=== PATIENT | male | born 1945 | race African-American/Black ===

== ENCOUNTER 2017-03-24 12:32 | Emergency (ER) | payer MEDICARE, MEDICAID ==
[2017-03-24] MEDS ORDERED: Acetaminophen/Codeine 30-300mg Tablet ONE (13:24)
--- NOTE | 2017-03-24 13:49 | RAD ---
2 VIEWS CHEST: Date: 03/24/17 PROVIDED CLINICAL HISTORY: Right rib pain status post injury. COMPARISON: Comparison made with the examination performed on 04/10/16. Cardiac and mediastinal silhouette is within normal limits. Lungs appear clear. No pleural fluid or p neumothorax apparent. IMPRESSION: No evidence for an acute cardiopulmonary process. POS: [facility]
== END 2017-03-24 13:58 | disposition home or self-care (01) ==
LOC: ERS 12:32
DX: S20.211A Contusion of right front wall of thorax, initial encounter (principal); I10 Essential (primary) hypertension; F17.210 Nicotine dependence, cigarettes, uncomplicated; W01.198A Fall on same level from slipping, tripping and stumbling with subsequent striking against other object, initial encounter
CPT/HCPCS: 71046

== ENCOUNTER 2017-04-06 16:19 | Inpatient (IN) | payer MEDICARE, MEDICAID ==
[~2017-04-06 16:19] MED LIST: Dexamethasone 20 MG/5 ML VIAL ONE; Lidocaine 1% PF 5 ML VIAL ONE; Ondansetron HCl/PF 4 MG/2 ML Vial ONE; PHENYLEPHRINE-NS 100 MCG/ML 10 ML SYRINGE ONE; PROPOFOL 200 MG/20 ML VIAL ONE; Succinylcholine Chloride 20 MG/ML 10 ml SYRINGE FS ONE; ePHEDrine/0.9% NaCl/PF SYRINGE 50 mg/10 ml ONE
[2017-04-06] MEDS ORDERED: HYDROcodone/Acetaminophen 10/325 mg Tablet ONE (17:55)
--- NOTE | 2017-04-06 18:36 | RAD ---
LEFT INDEX DIGIT RADIOGRAPHS THREE VIEWS 04/06/17 PROVIDED CLINICAL HISTORY: Left finger pain status post injury. FINDINGS: There is a nondisplaced intra-articular fracture involving the distal aspects of the index digit prox imal phalanx. There is surrounding soft tissue swelling. No additional fracture is evident. Alignment appears anatomic. Joint spaces appear preserved. IMPRESSION: Nondisplaced intra-articular fracture of the index digit proximal phalanx at the PIP joint. POS: [facility]
[2017-04-06] MEDS ORDERED: Neomycin-Polymyxin 1 ML AMP ONE (18:44)
[2017-04-06] MEDS ORDERED: Morphine 4 MG/ML Carpuject ONE (19:20)
[2017-04-06] MEDS ORDERED: hydrALAZINE 20 MG/ML VIAL ONE (19:20)
[2017-04-06] MEDS ORDERED: Ondansetron HCl/PF 4 MG/2 ML Vial ONE (19:20)
[2017-04-06] MEDS ORDERED: Labetalol HCl 100 MG/20 ML VIAL ONE (19:54)
[2017-04-06] MEDS ORDERED: Ondansetron HCl/PF 4 MG/2 ML Vial IVP PRN ×2 (20:13→22:52)
[2017-04-06] MEDS ORDERED: CEFAZOLIN/Water 2 GM/20 ML SYRINGE ONE (20:15)
[2017-04-06] MEDS ORDERED: traMADol HCl 50 MG TAB PO PRN ×2 (20:36)
[2017-04-06] MEDS ORDERED: RENALLY ADJUST ANTIBIOTICS FS PRN (20:45)
[2017-04-06] MEDS ORDERED: Bupivacaine PF 0.5% 30 ML VIAL ONE (21:26)
[2017-04-06] MEDS ORDERED: Fentanyl 100 MCG/2 ML VIAL ONE ×3 (21:44→23:07)
[2017-04-06] MEDS ORDERED: CEFAZOLIN/Water 2 GM/20 ML SYRINGE SLOW IVP SCH (22:00)
[2017-04-06] MEDS ORDERED: Bacitracin Zinc Ointment 30 gm TUBE ONE (22:23)
[2017-04-07] MEDS ORDERED: Labetalol HCl 100 MG/20 ML VIAL SLOW IVP PRN (00:13)
[2017-04-07] MEDS ORDERED: hydrALAZINE 20 MG/ML VIAL SLOW IVP PRN (00:13)
[2017-04-07] MEDS ORDERED: Amlodipine 10 MG TAB PO SCH ×2 (00:15→09:00)
[2017-04-07] MEDS ORDERED: Lisinopril 20 MG TAB PO SCH (00:15)
[2017-04-07] MEDS ORDERED: Hydrochlorothiazide 25 MG TAB PO SCH (00:15)
[2017-04-07] MEDS: Lisinopril/Hydrochlorothiazide 20 mg/12.5 mg Tablet PO SCH ×2 (00:30→08:21)
[2017-04-07 01:55] VITALS: BMI 24.4
[2017-04-07] MEDS ORDERED: CEFAZOLIN/Water 2 GM/20 ML SYRINGE SLOW IVP SCH (04:00)
[2017-04-07 05:43] LABS: #Monocytes 0.2 thou/uL (0.11-0.59); #Neutrophils 5.1 thou/uL (1.40-6.50); %Basophils 0.1 % (0.0-1.0); %Eosinophils 0.3 % (0.0-10.0); %Lymphocytes 15.5 % (21.0-51.0); %Monocytes 3.6 % (0.0-10.0); %Neutrophils 80.5 % (42.0-75.0); Mean Corpuscular HGB CONC 32.4 g/dL (32.0-36.0); Mean Corpuscular Hemoglobin 29.2 pg (27.0-31.0); Mean Platelet Volume 9.2 fL (7.4-10.4); Platelet Count 168 thou/uL (130-400); RBC Distribution Width 13.8 % (11.5-14.5); Red Blood Cell (RBC) Count 4.47 mill/uL (4.70-6.10); White Blood Cell (WBC) Count 6.3 thou/uL (4.8-10.8)
[2017-04-07 05:59] LABS: Anion Gap 12 mmol/L (10-20); BUN (Urea Nitrogen) 15 mg/dL (8.4-25.7); Calc. Creatinine Clearance 63 mL/min (70-130); Calcium 9.7 mg/dL (7.8-10.44); Carbon Dioxide 22 mmol/L (23-31); Chloride 105 mmol/L (98-107); Estimated GFR-MDRD 67; Glucose 132 mg/dL (83-110); Magnesium 2.3 mg/dL (1.6-2.6); Potassium 4.2 mmol/L (3.5-5.1); Sodium 135 mmol/L (136-145)
--- NOTE | 2017-04-07 06:35 | CON ---
PRIMARY CARE PHYSICIAN: Dr. Reyna East. DATE OF CONSULTATION: 04/06/2017 TIME OF SERVICE: 2350. REQUESTING PHYSICIAN: Dr. Alberto Yeboah. REASON FOR CONSULT: Medical management of hypertension, post-finger laceration repair. HISTORY OF PRESENT ILLNESS: Mr. Herbert is a very pleasant 71-year-old -Citizen Of [place] male with history of hypertension, medical noncompliance, ongoing tobacco abuse, and osteoarthritis. The alfred ent was in normal state of health today. He was working on a bandsaw and accidentally sliced into hi s left index finger. He came to the emergency department for evaluation and was set up for surgery f or repair. The patient was noted to have a blood pressure in the 220s/110s on arrival. He was given hydralazine and prepped for surgery today and taken for operative repair. He underwent general endotracheal ane sthesia without any difficulties. Postop, I am evaluating the patient. We were asked to see him korina or to going to surgery. Blood pressure has been in the 170s/50s since coming out of surgery. No fevers or chills. No chest pain or shortness of breath. No nausea or vomiting. PAST MEDICAL HISTORY: Hypertension. PAST SURGICAL HISTORY: Includes, 1. Bilateral rotator cuff repairs. 2. Back surgery. 3. Left hand surgery prior. HOME MEDICATIONS: 1. Tramadol 50 mg p.o. t.i.d. p.r.n. 2. Amlodipine 10 mg p.o. daily. 3. Lisinopril/hydrochlorothiazide 20/12.5 p.o. b.i.d. 4. Dequincy 7.5/325 one tablet as needed. 5. Gabapentin 300 mg p.o. t.i.d. 6. Flexeril 5 mg p.o. t.i.d. p.r.n. 7. Albuterol MDI p.r.n. ALLERGIES: 1. ASPIRIN causes rash. 2. IBUPROFEN causes rash. FAMILY HISTORY: Negative for clotting or bleeding disorder, immune dysfunction. SOCIAL HISTORY: Continues to smoke half pack of cigarettes per day. He smokes for 60 years. Denies any IV drug use and rare alcohol use. We discussed advanced directives. The patient does wish to be a FULL CODE. He was unable to name a surrogate. REVIEW OF SYSTEMS: A 10-point review of systems was performed, negative for all other systems except as stated as per HPI. PHYSICAL EXAMINATION: VITAL SIGNS: Temperature 98.2, pulse 60, blood pressure 175/95, respiratory rate 18, satting 96% on room air. He has remained in the 170s/90s since arrival to the floor. GENERAL: He is awake. He is alert. He is oriented x3. He is a tall, thin, -[place]izen [place] male a ppears to be in no acute distress. HEENT: Normocephalic, atraumatic. Pupils are equal, round, react to light bilaterally, mucous membr anes moist. No visible lesions or thrush. NECK: Supple. There is no lymphadenopathy, JVD, or thyromegaly. Normal carotid upstroke without br uit. LUNGS: Clear. There is no prolonged expiratory phase. No wheezes, no rales, or rhonchi. Good air movement. Symmetric chest excursion. CARDIOVASCULAR: Normal S1 and S2. No S3, S4. Pulses are bounding. No audible murmurs. ABDOMEN: Soft. Nontender, nondistended. No mass or organomegaly. EXTREMITIES: No cyanosis or clubbing. No edema. Left hand was in a postop wrap, was not examined. SKIN: Warm and well perfused, otherwise no other rash or lesions. NEUROLOGIC: Cranial nerves II-XII are grossly intact. He has normal speech pattern, 5/5 strength in all 4 extremities. No focal deficits. MUSCULOSKELETAL: Other than his left hand, large joints appear arthritic but uninflamed. He has no palpable effusions. LABORATORY DATA: None. RADIOGRAPHIC STUDIES: Finger x-ray done in the emergency department showed nondisplaced intra-articu lar fracture of the index digit proximal phalanx of the PIP joint. ASSESSMENT AND PLAN: 1. Essential hypertension. Patient was recently started on lisinopril/hydrochlorothiazide and amlod ipine by Dr. Reyna East within the last month. We will go and give doses now and plan to restar t and give them more in the morning. We will give hydralazine q.3 hours p.r.n. elevated systolic pre ssure and labetalol with hydralazine is not effective. Watch pressure very closely. Certainly has s ome wiggle room on the lisinopril and hydrochlorothiazide to go up. He is already on amlodipine 10 m g a day. Could change to nifedipine if we need better blood pressure control. We will check morning labs including CBC, CMP, and magnesium. Plan has been to up his lisinopril depending on what his cr eatinine is. 2. Finger laceration, status post repair by Dr. Yeboah. Postop care and pain management per Dr. Tl whitman. 3. Osteoarthritis as above. 4. Ongoing tobacco abuse, patient does use albuterol MDIs as needed. We will have that available. He has no signs of reactive airway disease or chronic obstructive pulmonary disease exacerbation at t his point.
[2017-04-07] MEDS ORDERED: Acetaminophen/Codeine 30-300mg Tablet PO PRN ×2 (07:54)
[2017-04-07] MEDS ORDERED: TETANUS AND DIPHTHERIA TOX/PF 0.5 ML DISP.SYRIN IM SCH (09:00)
[2017-04-07] MEDS ORDERED: cloNIDine 0.1 MG TAB PO PRN (09:19)
[2017-04-07 09:36] VITALS: BP 166/96; TEMP 97.7
--- NOTE | 2017-04-07 16:17 | OP ---
DATE OF SURGERY: 04/06/2017 PREOPERATIVE DIAGNOSIS: Left index finger laceration with proximal phalanx head fracture and extenso r tendon laceration. POSTOPERATIVE DIAGNOSIS: Left index finger laceration with proximal phalanx head fracture and extens or tendon laceration. SURGICAL PROCEDURES: 1. Irrigation and debridement of left index finger laceration including skin, subcutaneous tissue, a nd tendon. 2. Repair of extensor tendon at the level of the proximal interphalangeal joint. 3. Exploration of a stable fracture of proximal phalanx. ANESTHESIA: General. TOURNIQUET TIME: Approximately 26 minutes at 250 mmHg. SURGEON: Alberto Yeboah M.D. IMPLANTS: None. COMPLICATIONS: None. DRAINS: None. SPECIMEN: None. OUTCOME: Satisfactory. INDICATIONS: Mr. Herbert is a pleasant 71-year-old gentleman status post table saw accident in [facility] he cut the dorsal surface of his index finger with a table saw. Workup included plain x-rays in the emergency room that showed what appears to be a split at the head of the proximal phalanx of the index finger. After discussion with patient including risks and benefits, we decided to proceed with irrigation, debridement, and possible repair of both proximal phalanx and extensor tendon. PROCEDURE IN DETAIL: A timeout was performed and then patient was induced with general anesthesia an d positioned supine on the OR table. The limb was then exsanguinated with Esmarch bandage, tournique t inflated to 250 mmHg. The traumatic wound was extended both proximally and distally and then the s kin flaps developed and reflected revealing the underlying long oblique laceration of the extensor te ndon with still some continuity of the extensor kline. Exploiting the interval through the lacerated tendon, the proximal phalanx fracture was identified. This was not a through and through fracture, b ut rather a cut with the saw blade and probing of the head of the proximal phalanx that showed that t his was stable with absolutely no movement at the partial fracture line. As such, the wound was then thoroughly irrigated with normal saline with bulb syringe, removing all foreign debris. This incisi on and drainage for irrigation and debridement was performed with a scalpel, removing nonviable tendo n material as well as sharply excising some of the foreign material that was encountered. Next, atte ntion was placed at repairing the extensor tendon using 4-0 Prolene in a running repair of this long oblique laceration of the extensor tendon was performed. This got excellent edge on edge apposition of the laceration and the finger could be brought up to approximately 70 degrees of flexion at the pr oximal interphalangeal joint without excessive tension on the repair. The wound again irrigated and then finally closed with 3-0 nylon in simple fashion for the skin. A Xeroform gauze, Webril, and pos terior fiberglass splint was applied to the hand and then tourniquet was let down, total time of 26 m inutes. The patient was then transferred to recovery room in stable condition. There were no compli cations. He tolerated the procedure well.
--- NOTE | 2017-04-08 13:34 | DIS ---
DATE OF ADMISSION: 04/06/2017 DATE OF DISCHARGE: 04/07/2017 PREOPERATIVE DIAGNOSES: Left index finger laceration with possible phalanx head fracture and extenso r tendon laceration. POSTOPERATIVE DIAGNOSES: Left index finger laceration with possible phalanx head fracture and exten sor tendon laceration. PROCEDURES: 1. Irrigation and debridement left index finger laceration including skin, subcutaneous tissue and t endon. 2. Repair of extensor tendon at the level of the proximal interphalangeal joint. 3. Exploration of a stable fracture of the proximal phalanx. HOSPITAL COURSE: Hospital stay was unremarkable. The patient was discharged next day. He had no ho spital complications. DISCHARGE CONDITION: Good/stable. DISPOSITION: Home. DISCHARGE FOLLOWUP: Followup would be in 7-10 days, sooner if there are problems or concerns. DISCHARGE MEDICATIONS: Given with usage instructions. Heraclio Charles PA-C for Dr. Alberto Yeboah.
--- NOTE | 2017-04-16 14:16 | EKG ---
Test Reason : Blood Pressure : / mmHG Vent. Rate : 056 BPM Atrial Rate : 056 BPM P-R Int : 168 ms QRS Dur : 072 ms QT Int : 434 ms P-R-T Axes : 076 041 082 degrees QTc Int : 418 ms Sinus bradycardia Moderate voltage criteria for LVH, may be normal variant Borderline ECG Confirmed by NICO BELL, SOPHIE ([id number]), movie editor MALATHI BYRD ([id number]) on 04/16/2017 2:15:56 PM Referred By: Confirmed By:SOPHIE WALSH MD
== END 2017-04-07 09:51 | disposition home or self-care (01) | DRG 513 ==
LOC: ERS 16:19 → SURG B 20:00 → SDC 20:38 → SURG B 23:39
PROVIDERS: ADMIT Orthopaedic Surgery; ATTEND Orthopaedic Surgery
PROC: 0LQ80ZZ Repair Left Hand Tendon, Open Approach (ICD-10-PCS; principal; 2017-04-06)
PROC: 0LB80ZZ Excision of Left Hand Tendon, Open Approach (ICD-10-PCS; 2017-04-06)
DX: S62.641A Nondisplaced fracture of proximal phalanx of left index finger, initial encounter for closed fracture (principal); S66.321A Laceration of extensor muscle, fascia and tendon of left index finger at wrist and hand level, initial encounter; F17.210 Nicotine dependence, cigarettes, uncomplicated; S61.211A Laceration without foreign body of left index finger without damage to nail, initial encounter; I10 Essential (primary) hypertension; W29.8XXA Contact with other powered hand tools and household machinery, initial encounter; M19.90 Unspecified osteoarthritis, unspecified site
CPT/HCPCS: 36415; 80048; 83735; 85025; 93005; 96374; 96375; 99406; J0360; J1100; J2001; J2270; J2405; J2704; J3010; S0020

== ENCOUNTER 2017-11-19 07:57 | Emergency (ER) | payer MEDICARE, MEDICAID ==
[2017-11-19] MEDS ORDERED: Cyclobenzaprine 10 MG TAB ONE (08:54)
[2017-11-19] MEDS ORDERED: Acetaminophen 325 MG TAB ONE (08:54)
--- NOTE | 2017-11-19 11:13 | RAD ---
CHEST PA AND LATERAL: HISTORY: A 72-year-old male with a history of right posterior chest wall pain. FINDINGS: The lungs are borderline hyperinflated. Heart size is normal. The lungs are clear. No pneumonia, e leo, or pleural effusion. IMPRESSION: Borderline hyperinflation. No acute intrathoracic disease. Stable from prior study. POS: [facility]
== END 2017-11-19 10:31 | disposition home or self-care (01) ==
LOC: ERS 07:57
DX: S46.911A Strain of unspecified muscle, fascia and tendon at shoulder and upper arm level, right arm, initial encounter (principal); I10 Essential (primary) hypertension; F17.210 Nicotine dependence, cigarettes, uncomplicated; X50.1XXA Overexertion from prolonged static or awkward postures, initial encounter
CPT/HCPCS: 71046

== ENCOUNTER 2018-03-14 00:30 | Observation (INO) | payer MEDICARE, MEDICAID ==
[2018-03-14 01:18] LABS: #Basophils 0.1 thou/uL (0.0-0.2); #Eosinphils 0.5 thou/uL (0.0-0.7); #Lymphocytes 1.9 thou/uL (1.20-3.40); #Monocytes 0.7 thou/uL (0.11-0.59); #Neutrophils 4.5 thou/uL (1.40-6.50); %Basophils 0.9 % (0.0-1.0); %Eosinophils 6.6 % (0.0-10.0); %Lymphocytes 24.8 % (21.0-51.0); %Monocytes 9.3 % (0.0-10.0); %Neutrophils 58.4 % (42.0-75.0); Hemoglobin 12.6 g/dL (14.0-18.0); Mean Corpuscular HGB CONC 32.7 g/dL (32.0-36.0); Mean Corpuscular Hemoglobin 28.5 pg (27.0-31.0); Mean Platelet Volume 8.2 fL (7.4-10.4); Platelet Count 168 thou/uL (130-400); RBC Distribution Width 13.7 % (11.5-14.5); Red Blood Cell (RBC) Count 4.42 mill/uL (4.70-6.10); White Blood Cell (WBC) Count 7.7 thou/uL (4.8-10.8)
[2018-03-14] MEDS ORDERED: methylPREDNISolone Sod Succ/PF 125 MG/2 ML VIAL ONE (01:19)
[2018-03-14 01:42] LABS: ALT (SGPT) 9 U/L (8-55); AST (SGOT) 16 U/L (5-34); Albumin 3.9 g/dL (3.4-4.8); Alkaline Phosphatase 107 U/L (40-150); Anion Gap 11 mmol/L (10-20); BUN (Urea Nitrogen) 12 mg/dL (8.4-25.7); Bilirubin, Total 0.5 mg/dL (0.2-1.2); Calc. Creatinine Clearance 0 mL/min (70-130); Calcium 9.4 mg/dL (7.8-10.44); Carbon Dioxide 23 mmol/L (23-31); Chloride 103 mmol/L (98-107); Estimated GFR-MDRD 59; Globulin 3.2 g/dL (2.4-3.5); Glucose 94 mg/dL (83-110); Potassium 4.2 mmol/L (3.5-5.1); Protein, Total 7.1 g/dL (5.8-8.1); Sodium 133 mmol/L (136-145)
[2018-03-14 02:05] LABS: CKMB 3.2 ng/mL (0-6.6)
[2018-03-14] MEDS ORDERED: Nitroglycerin 2% Ointment 1 INCH/1 GM Packet ONE (03:30)
[2018-03-14 03:58] LABS: Troponin I 0.018 ng/mL (< 0.028)
[2018-03-14] MEDS ORDERED: Ondansetron ODT 4 MG TAB SL PRN (04:14)
[2018-03-14] MEDS ORDERED: Ondansetron PF 4 MG/2 ML Vial IVP PRN (04:14)
[2018-03-14] MEDS ORDERED: Sodium Chloride 0.9% 1,000 ML IV SCH (04:14)
[2018-03-14] MEDS ORDERED: Acetaminophen 325 MG TAB PO PRN (04:14)
[2018-03-14 05:30] VITALS: BMI 23.5
[2018-03-14] MEDS ORDERED: Guaifenesin DM 100-10/5 ML UDCUP PO PRN (07:51)
--- NOTE | 2018-03-14 08:27 | RAD ---
PA AND LATERAL CHEST XRAY: DATE: 03/14/2018. HISTORY: Cough and fever. Shortness of breath. COMPARISON: 11/19/2017. FINDINGS: The lungs remain hyperexpanded but are clear. The cardiac silhouette and pulmonary vasculature are w ithin normal limits. There has been no interval change compared to the prior exam. IMPRESSION: Stable hyperexpansion of the lungs without evidence of an acute cardiopulmonary process. The chest i s stable from prior exam. POS: [facility]
[2018-03-14] MEDS ORDERED: PROVENTIL INHALER 6.7 G (200 INHALATIONS) INH SCH (09:00)
[2018-03-14] MEDS ORDERED: Amlodipine 10 MG TAB PO SCH (09:00)
[2018-03-14] MEDS ORDERED: Famotidine 20 MG TAB PO SCH (09:00)
[2018-03-14] MEDS ORDERED: Enoxaparin Sodium 40 MG/0.4 ML SYRINGE SC SCH (09:00)
[2018-03-14] MEDS ORDERED: Prevnar 13-Val Conj/PF 0.5 ML SYRINGE IM ONE (09:00)
[2018-03-14] MEDS ORDERED: predniSONE 20 MG TAB PO SCH (10:04)
[2018-03-14 11:56] VITALS: TEMP 98.5
[2018-03-14 12:51] VITALS: BP 166/84
--- NOTE | 2018-03-14 15:37 | SS ---
DATE OF ADMISSION: 03/14/2018 DATE OF DISCHARGE: 03/14/2018 CHIEF COMPLAINT: Shortness of breath with a productive cough x4 days. CONSULTING PHYSICIANS: None. HISTORY OF PRESENT ILLNESS: This is a very pleasant 72-year-old man, who has a background history of hypertension and COPD. He is a long-time smoker since age 15, who presents with a cough that began four days ago, productive for green to white sputum. The patient states he began to experience coughing fits, which would then cause shortness of breath. When he has not been coughing, he denies having any shortness of breath neither at rest nor with exertion. The patient denies ever experiencing any chest pain. He denies having any hemoptysis. He states his took his temperature and he had mild fever, but does not recall how high his temperature was. Due to the persisting coughing fits, the patient became very short of breath and opted to come into the ED early hours this morning. While in the ED, he was noted to be wheezing. Per ED notes, he had been complaining of chest pain. However, again the patient denies ever experiencing any chest pain since four days ago. He does admit to wheezing and usually uses an albuterol inhaler at home; however, this did not provide any relief with his symptoms. In the ED, he did undergo a chest x-ray showing hyperexpansion of the lungs, otherwise no acute cardiopulmonary process. LABORATORY DATA: Laboratory studies were done showing white blood count of 7.7, hemoglobin of 12.6, hematocrit 38.4. Sodium was 133 and is chronically low. Potassium was 4.2. BUN 12. Creatinine 1.43. EGFR 59. Calcium 9.4. LFTs unremarkable. CK-MB was 3.2. BNP was 119.9. He underwent serial troponins with the initial being raised at 0.035 followed by two subsequent negative TnI's. An ECG was done in the ED notable for abnormal T-waves, otherwise no ST changes. He was admitted for further management and investigations. When seen earlier this morning, the patient had notable inspiratory and expiratory wheezes bilaterally throughout all lung anand. He was given DuoNeb x2 and 40 mg of prednisone with significant improvement. His symptoms have fully resolved. Please note, when seen this morning. despite wheezing on exam, the patient was completely asymptomatic. He denied having any shortness of breath. Able to ambulate without difficulties. Continued to deny any chest pain. His cough had settled with guaifenesin. The patient was very eager to go home. Following further discussion with Dr. Yin, it was decided he would be suitable for discharge, however with plans to follow up with his primary care physician for an echo and stress test, which he has never had done in the past. The patient was discharged on short course steroids and doxycycline for infective exacerbation of COPD. He states he is running low on his ProAir, therefore this was refilled. At the time of discharge, the patient denies having any fevers, chills, or sweats. No headaches or dizziness. No nausea or vomiting. He has tolerated a regular diet during his stay. No abdominal pain or cramping. He has been moving his bowels. No urinary symptoms. REVIEW OF SYSTEMS: All other review of systems are negative. PHYSICAL EXAMINATION: VITAL SIGNS: Temperature 98.5, pulse 82, respirations 16, and blood pressure 166/84. HEENT: Normocephalic and atraumatic. Pupils are equal, round, reactive to light. Sclerae are without icterus. Oropharynx is clear. NECK: Supple without lymphadenopathy. LUNGS: Clear to auscultation bilaterally without any wheezes, rales, or rhonchi. CARDIAC: Regular rate and rhythm without audible murmurs, rubs, or gallops. ABDOMEN: Soft, nontender, nondistended. Normoactive bowel sounds present. EXTREMITIES: No clubbing, cyanosis, or edema. NEUROLOGIC: Alert and oriented x3. SKIN: Without rash or jaundice. PAST MEDICAL HISTORY: 1. Hypertension. 2. Herniated disk. PAST SURGICAL HISTORY: 1. Bilateral rotator cuff surgery. 2. Left hand surgery. 3. Back surgery. SOCIAL HISTORY: The patient admits to smoking a half a pack per day. He has been smoking since age 15. He also drinks occasionally. He denies any illicit drug use. FAMILY HISTORY: Both of his parents had hypertension. ALLERGIES: 1. ASPIRIN CAUSES RASH. 2. IBUPROFEN CAUSES NAUSEA. CURRENT MEDICATIONS: 1. Prescription refill for ProAir. 2. Prescription given for prednisone 40 mg by mouth daily for four days. 3. Prescription given for doxycycline 500 mg p.o. twice daily for five days. LABORATORY DATA AND IMAGING DATA: As mentioned above in the HPI. CONDITION: Stable at discharge. ACTIVITY: As tolerated. DIET: Heart-healthy diet. FOLLOWUP: The patient was advised to see his primary care physician within the next two days in order to be re-assessed and for discussion of cardiac investigations as an outpatient including an echo and a stress test. DISPOSITION: Discharged home on 03/14/2018. The patient's case was discussed with Dr. Yin, who agrees with the plan as described above. Job ID: [id number]
--- NOTE | 2018-03-24 14:06 | EKG ---
Test Reason : Blood Pressure : / mmHG Vent. Rate : 063 BPM Atrial Rate : 063 BPM P-R Int : 186 ms QRS Dur : 074 ms QT Int : 406 ms P-R-T Axes : 077 034 179 degrees QTc Int : 415 ms Normal sinus rhythm T wave abnormality, consider lateral ischemia No ST elevation Abnormal ECG Confirmed by ACE BELL, JORDAN ([id number]), legal editor MAGNUS BRYAN ([id number]) on 03/24/2018 2:06:11 PM Referred By: Confirmed By:JORDNA BELLO MD
== END 2018-03-14 14:19 | disposition home or self-care (01) ==
LOC: ERS 00:30 → 2SW 02:45
PROVIDERS: ADMIT Internal Medicine; ATTEND Internal Medicine
DX: J44.1 Chronic obstructive pulmonary disease with (acute) exacerbation (principal); I10 Essential (primary) hypertension; F17.210 Nicotine dependence, cigarettes, uncomplicated; Z88.6 Allergy status to analgesic agent; Z88.8 Allergy status to other drugs, medicaments and biological substances; Z98.890 Other specified postprocedural states; Z79.899 Other long term (current) drug therapy
CPT/HCPCS: 71046; 80053; 82553; 83880; 84484 ×2; 85025; 87804 ×2; 90662; 90670; 93005; 94640 ×3; 96361; 96372; 96374; 99285; 99406; G0008; G0009; G0378 ×2; 36415; 90471; J1650; J2930; J7506; J7620

== ENCOUNTER 2019-06-28 09:36 | Outpatient (CLI) | payer MEDICARE, MEDICAID ==
--- NOTE | 2019-06-28 12:24 | CT ---
CT ABDOMEN AND PELVIS WITH IV CONTRAST: Date: 06/28/2019 INDICATION: Right lower quadrant abdominal pain. Comparison made to a noncontrast abdominal and pelvic CT from 02/22/2012. That exam revealed bilatera l renal cysts with no other acute process. FINDINGS: Lung bases appear clear of infiltrate. Images through the liver show numerous small hepatic cysts. These were also present on the prior stud y and appear stable. The spleen is unremarkable. Pancreas unremarkable. Review of the stomach reveals mural thickening in the gastric fundus and cardia extending to the EG j unction. Wall of the body and antrum appears normal thickness. Recommend GI consultation and endoscop y to assess the gastric mucosa at this region. Adrenal glands appear unremarkable. There are numerous bilateral renal cysts. These are too numerous to count. The largest of these cysts seen in the superior pole of both kidneys measures up to 4.0 cm. There is no hydronephrosis. There is no evidence of solid or enhancing renal mass. Small bowel loops show nonspecific distention without dilatation. The appendix is difficult to deline ate due to lack of intra-abdominal fat plane but is probably visualized and appears to be normal. The re is stool throughout the colon. Aorta shows atherosclerotic calcification with normal caliber. No evidence of adenopathy or soft tiss ue mass. Images through the pelvis reveal a contracted bladder which is not well evaluated. There is evidence of mild prostatic hypertrophy. No free fluid identified. Osseous structures unremarkable. Benign-appearing cystic lesion in the subcapital region of the left femur is noted. IMPRESSION: 1. Abnormal mural thickening involving the gastric cardia and fundus. Recommend GI consultation and endoscopy. 2. Numerous hepatic and renal cystic lesions which appear benign. 3. Nonspecific small bowel distention. POS: [facility]
== END 2019-06-28 09:37 | disposition home or self-care (01) ==
LOC: BICCT 09:36
PROVIDERS: ATTEND Family Medicine
DX: R10.31 Right lower quadrant pain (principal); N28.1 Cyst of kidney, acquired; K76.89 Other specified diseases of liver; K63.89 Other specified diseases of intestine; K31.89 Other diseases of stomach and duodenum
CPT/HCPCS: 74177; 82565

== ENCOUNTER 2019-07-19 10:22 | Outpatient (CLI) | payer MEDICARE, MEDICAID ==
--- NOTE | 2019-07-19 12:21 | ULT ---
HEPATIC ULTRASOUND WITH HANLEY SCALE AND COLOR FLOW AND SPECTRAL DOPPLER IMAGING: Date: 07/19/2019 HISTORY: Abdominal pain, right upper quadrant. Chronic hepatitis C. Personal history of colon polyps. CORRELATION: CT abdomen and pelvis of 06/28/2019. FINDINGS: There are cysts in the liver measuring 11.0 mm and 9.0 mm, respectively. The spleen measures 9.6 cm i n length and is normal. No biliary ductal dilatation is seen. The gallbladder and visualized portions of the pancreas are normal. No free fluid is seen in the right upper quadrant. There is normal flow and spectral waveforms in the hepatic, portal, and splenic vasculature. IMPRESSION: 1. Hepatic cysts. 2. No evidence of cholelithiasis. POS: [facility]
== END 2019-07-19 10:23 | disposition home or self-care (01) ==
LOC: BICULT 10:22
PROVIDERS: ATTEND Internal Medicine Gastroenterology
DX: R10.11 Right upper quadrant pain (principal); B18.2 Chronic viral hepatitis C; Z86.010 Personal history of colon polyps; K76.89 Other specified diseases of liver
CPT/HCPCS: 76705

== ENCOUNTER 2019-10-05 10:28 | Emergency (ER) | payer MEDICARE, MEDICAID, OTHER ==
[2019-10-06 14:06] LABS: SARS-CoV-2 MS2 Positive; SARS-CoV-2 N Gene Negative; SARS-CoV-2 S Gene Negative; SARS-CoV-2 by NAA Not Detected (NotDetected); SARS-CoV-2 orf1ab Negative
== END 2019-10-05 10:54 | disposition home or self-care (01) ==
LOC: ERS 10:28
DX: Z20.828 Contact with and (suspected) exposure to other viral communicable diseases (principal); I10 Essential (primary) hypertension; F17.210 Nicotine dependence, cigarettes, uncomplicated
CPT/HCPCS: 99283; U0003; 87635

== ENCOUNTER 2020-01-15 15:02 | Inpatient (IN) | payer MEDICARE, MEDICAID ==
[2020-01-15 16:19] LABS: #Eosinphils 0.3 thou/uL (0.0-0.7); #Lymphocytes 2.7 thou/uL (1.20-3.40); #Monocytes 0.6 thou/uL (0.11-0.59); #Neutrophils 3.1 thou/uL (1.40-6.50); %Basophils 0.7 % (0.0-1.0); %Lymphocytes 40.4 % (21.0-51.0); Hemoglobin 13.8 g/dL (14.0-18.0); Mean Corpuscular HGB CONC 33.5 g/dL (32.0-36.0); Mean Corpuscular Hemoglobin 29.8 pg (27.0-31.0); Mean Platelet Volume 8.2 fL (7.4-10.4); Platelet Count 189 thou/uL (130-400); RBC Distribution Width 13.8 % (11.5-14.5); Red Blood Cell (RBC) Count 4.63 mill/uL (4.70-6.10); White Blood Cell (WBC) Count 6.6 thou/uL (4.8-10.8)
[2020-01-15 16:43] LABS: ALT (SGPT) 11 U/L (8-55); AST (SGOT) 20 U/L (5-34); Albumin 4.1 g/dL (3.4-4.8); Alkaline Phosphatase 111 U/L (40-110); Anion Gap 13 mmol/L (10-20); BUN (Urea Nitrogen) 18 mg/dL (8.4-25.7); Bilirubin, Total 0.4 mg/dL (0.2-1.2); CK (CPK) 262 U/L (30-200); CRP (Inflammatory) Less than 0.50 mg/dL (= or < 0.5); Calc. Creatinine Clearance 0 mL/min (70-130); Calcium 9.6 mg/dL (7.8-10.44); Carbon Dioxide 25 mmol/L (23-31); Chloride 105 mmol/L (98-107); Estimated GFR-MDRD 51; Globulin 3.3 g/dL (2.4-3.5); Glucose 81 mg/dL (83-110); Potassium 4.8 mmol/L (3.5-5.1); Protein, Total 7.4 g/dL (5.8-8.1); Sodium 138 mmol/L (136-145)
--- NOTE | 2020-01-15 17:04 | RAD ---
Exam:3 views left HISTORY: Fourth and fifth toe infection COMPARISON: None FINDINGS: No significant soft tissue swelling or subcutaneous emphysema. Mild bone demineralization. No erosive or destructive changes. Lisfranc alignment is maintained. No fractures. IMPRESSION: No radiographic evidence of ostial myelitis. Additional imaging if clinically warranted.
--- NOTE | 2020-01-15 18:00 | PDOC.FPRHP ---
- History of Present Illness Chief Complaint: pain in left toes History of Present Illness: 74 yo M with history of HTN and COPD complaining of painful and cold left toes for the past month. Patient was seen by Dr. Spivey 1-2 weeks ago and treated with antibiotics for a sore on the bottom of his 4th digit. He explains it has been painful to wear his socks or let the bed sheet cover his foot. Approximately 1 week ago the pain in his 1st, 4th and 5th digit began worsening. The pain is pulsatile and he has noticed his 4th and 5th toes sometimes changing color to black and green. He was evaluated in clinic today and instructed to come to the hospital. He also describes cold and numbness in his left LE from his knee down that has been present for several months, requiring wrapping with a heating pad at times to keep warm as well as chronic left hip pain for the past year. He denies any fever, chills, nausea, or vomiting. - Allergies/Adverse Reactions Allergies Allergy/AdvReac Type Severity Reaction Status Date / Time aspirin Allergy Intermediate Rash Verified 01/15/20 20:35 ibuprofen Allergy Intermediate Rash Verified 01/15/20 20:35 - Home Medications Medication Instructions Recorded Confirmed Type amLODIPine Besylate [Amlodipine 10 mg PO DAILY 04/30/16 01/15/20 History Besylate] Albuterol Sulfate [Proair HFA] 2 puff INH DAILY #1 hfa.aer.[email or web address] 03/14/18 01/15/20 Rx Doxycycline [Vibramycin] 100 mg PO Q12HR 5 Days #10 cap 03/14/18 01/15/20 Rx Prednisone [predniSONE 10 mg 40 mg PO DAILY 4 Days #4 tab.ds.pk 03/14/18 01/15/20 Rx Dosepak] Hydrochlorothiazide 12.5 mg PO BID 01/15/20 01/15/20 History Simvastatin 20 mg PO HS 01/15/20 01/15/20 History - History PMHx: HTN, COPD PSHx: bilateral rotator cuff, left hand, back FHx: Dad - HTN Social: 1/2 PPD for 60 years, social drinking, smokes marijuana 2-3 times a month, denies any other drug use - Review of Systems General: denies: fever/chills Eyes: denies: vision changes ENT: denies: nasal congestion, rhinorrhea Respiratory: denies: cough, congestion, shortness of breath Cardiovascular: denies: chest pain, palpitation, edema Gastrointestinal: denies: nausea, vomiting, diarrhea, constipation, abdominal pain Genitourinary: denies: dysuria Skin: denies: rashes Musculoskeletal: reports: pain, tenderness. denies: swelling Neurological: reports: numbness. denies: weakness - Vital signs BP: 175/116 HR: 81 RR: 19 Tmax: 98.6 Pox: 95% on RA Wt: 75kg - Physical Exam Constitutional: NAD, awake, alert and oriented HEENT: normocephalic and atraumatic, EOMI, grossly normal vision, grossly normal hearing Neck: supple, FROM Heart: RRR, no murmurs/rubs/gallops, no edema -Heart: no L pedal pulses appreciated Lungs: CTAB, no respiratory distress Abdomen: soft, non-tender, bowel sounds present Musculoskeletal: ROM grossly normal, other (cold and tender left 4th and 5th digits, swollen, no erythema or signs of infection) Neurological: no focal deficit, CN II-XII intact Skin: no rash/lesions Psychiatric: normal mood and affect, good judgment and insight, intact recent and remote memory FMR H&P: Results - Labs Result Diagrams: 01/15/20 16:10 01/15/20 16:10 Lab results: WBC 6.6 thou/uL (4.8-10.8) 01/15/20 16:10 Hgb 13.8 g/dL (14.0-18.0) L 01/15/20 16:10 Hct 41.2 % (42.0-52.0) L 01/15/20 16:10 MCV 89.0 fL (78.0-98.0) 01/15/20 16:10 Plt Count 189 thou/uL (130-400) 01/15/20 16:10 Neutrophils % 46.0 % (42.0-75.0) 01/15/20 16:10 Sodium 138 mmol/L (136-145) 01/15/20 16:10 Potassium 4.8 mmol/L (3.5-5.1) 01/15/20 16:10 Chloride 105 mmol/L (98-107) 01/15/20 16:10 Carbon Dioxide 25 mmol/L (23-31) 01/15/20 16:10 BUN 18 mg/dL (8.4-25.7) 01/15/20 16:10 Creatinine 1.61 mg/dL (0.7-1.3) H 01/15/20 16:10 Glucose 81 mg/dL (83-110) L 01/15/20 16:10 Calcium 9.6 mg/dL (7.8-10.44) 01/15/20 16:10 Total Bilirubin 0.4 mg/dL (0.2-1.2) 01/15/20 16:10 AST 20 U/L (5-34) 01/15/20 16:10 ALT 11 U/L (8-55) 01/15/20 16:10 Alkaline Phosphatase 111 U/L (40-110) H 01/15/20 16:10 Creatine Kinase 262 U/L (30-200) H 01/15/20 16:10 C-Reactive Protein Less than 0.50 mg/dL (= or < 0.5) 01/15/20 16:10 Serum Total Protein 7.4 g/dL (5.8-8.1) 01/15/20 16:10 Albumin 4.1 g/dL (3.4-4.8) 01/15/20 16:10 - Radiology Interpretation Other Status: report reviewed by me (Left LR Xray: no signs of osteomyelitis) FMR H&P: A/P - Plan 74 yo M with history of HTN and COPD complaining of painful and cold left toes Ischemic Ulcer vs Peripheral Vascular Disease -cold and painful left LE digits -afebrile, WBC wnl, CRP <0.5 -US arterial and venous dopplers LE pending -[place], morphine prn for pain -Wound care consulted, Rail Gang Supervisor consulted -Consider CTA of LE -Gen Surg consult in AM -no signs of infections, no antibiotics at this time HTN -BP 197/113 in ED -IV labetalol prn -Continue home meds COPD -Well controlled -Continue home meds Tobacco abuse - 1/2 PPD for 60 years - Nicotine patch DVT PPx: SCDs Diet: HH, NPO at midnight Code: FULL PCP: Stephanie Dispo: Complete workup for PVD, discharge pending evaluation by general surgery FMR H&P: Upper Level - Plan Date/Time: 01/15/20 2412 I, Miguel Paz DO, have evaluated this patient and agree with findings/plan as outlined by internal audit manager resident. Pertinent changes/additions are listed here. 74 yo M w pmhx sig for htn and tobacco abuse presents for 1 mo of foot pain It has been worsening for the past week, he reports frequently feeling the extremity as cool, and a throbbing pain. He has never had a wound like this before, does not have known DMII. He denies any erythema, draining purulence, fever, or wounds in other places. He was treated w/ abx in clinic w/o success. In the ED labs were wnl, xr did not suggest osteo, inflammatory markers negative. BP was elevated in ED. Ischemic ulcer failing outpt therapy and PVD are most likely primary dx, will evaluate with imaging and control pain, consult surg in AM. No concern for acute infection at this time, will hold off abx. Consult dietary and wound care for wound management. please see internal audit manager note for mgmt of chronic medical conditions. Addendum - Attending - Attending Attestation Date/Time: 01/15/20 2966 I personally evaluated the patient and discussed the management with Dr. Steen/Jackson I agree with the History, Examination, Assessment and Plan documented above with any addition or exceptions noted below.
[2020-01-15] MEDS ORDERED: HYDROcodone/Acetaminophen 5/325 mg Tablet ONE (18:56)
[2020-01-15] MEDS ORDERED: Ondansetron ODT 4 MG TAB PO PRN (19:18)
[2020-01-15] MEDS ORDERED: Acetaminophen 325 MG TAB PO PRN (19:18)
[2020-01-15] MEDS ORDERED: Acetaminophen 650 MG Suppository PR PRN (19:18)
[2020-01-15] MEDS ORDERED: Ondansetron PF 4 MG/2 ML Vial IVP PRN (19:18)
[2020-01-15] MEDS: Morphine 2 MG/ML VIAL SLOW IVP PRN (20:17)
[2020-01-15] MEDS: Labetalol HCl 100 MG/20 ML VIAL SLOW IVP PRN (20:18)
[2020-01-15] MEDS: Nicotine 14 MG PATCH TD SCH (20:19)
[2020-01-15 20:35] VITALS: BMI 21.9
--- NOTE | 2020-01-15 22:40 | ULT ---
EXAM: Bilateral lower extremity venous Doppler HISTORY: Left lower extremity pain. Left digit gangrene. FINDINGS: Grayscale, color-flow, Doppler evaluation, spectral analysis of the bilateral lower extremity venous structures is performed with 2-D imaging. The bilateral common femoral, superficial femoral, popliteal, posterior tibial, proximal greater saphenous and profunda femoral veins are imaged. There is normal luminal compressibility, flow, and augmentation in the visualized deep venous structu res of the bilateral lower extremities. IMPRESSION: No evidence of a deep vein thrombosis in the visualized deep venous structures bilateral lower extrem ities.
[2020-01-16] MEDS: HYDROcodone/Acetaminophen 5/325 mg Tablet PO PRN ×2 (05:22→19:32)
--- NOTE | 2020-01-16 05:59 | PDOC.FM ---
- Subjective Subjective: Patient reports persistent foot/toe pain in L great and 4/5 toes. Also reports his L lower leg feels cold. Discussed intermittent L hip pain with patient that is worse when walking. Discussed that it may be related to lower leg. Otherwise no acute concerns. - Objective Vital Signs & Weight: Vital Signs (12 hours) Temp Pulse Resp BP BP Pulse Ox 01/16/20 04:35 98.4 F 60 16 174/96 H 98 01/15/20 23:29 98.0 F 61 16 158/92 H 100 01/15/20 21:31 171/92 H 01/15/20 20:18 81 218/113 H 01/15/20 20:07 98.1 F 81 18 218/113 H 98 Weight Weight 75.523 kg Result Diagrams: 01/16/20 06:40 01/16/20 06:40 Phys Exam - Physical Examination Constitutional: NAD Respiratory: no wheezing, no rales, no rhonchi, clear to auscultation bilateral Cardiovascular: RRR, no significant murmur, no rub Gastrointestinal: soft, non-tender, no distention, positive bowel sounds L great/4/5 toes exquisitely TTP, L pulse 1+, RLE 2+, LLE cool to touch Deviation from normal: L great/4/5 toes with peeling skin, 4/5 appear dark, especially on tips Dx/Plan - Plan Plan: 74 yo M with history of HTN and COPD complaining of painful and cold left toes Ischemic Ulcer vs Peripheral Vascular Disease -cold and painful left LE digits -afebrile, WBC wnl, CRP <0.5 -US arterial LE pending -[place], morphine prn for pain -Wound care consulted, Clinical Outcomes Manager consulted -Consider CTA of LE -Gen Surg consult likely this AM -no signs of infections, no antibiotics at this time HTN -BP 197/113 in ED -IV labetalol prn -Continue home meds COPD -Well controlled -Continue home meds Tobacco abuse - 1/2 PPD for 60 years - Nicotine patch DVT PPx: SCDs Diet: HH, NPO at midnight Code: FULL PCP: Rubio Dispo: Complete workup for PVD, discharge pending evaluation by general surgery Addendum - Attending - Attending Attestation Date/Time: 01/16/20 1438 I personally evaluated the patient and discussed the management with Dr. Perez I agree with the History, Examination, Assessment and Plan documented above with any addition or exceptions noted below - Patient c/o resting foot pain. Afebrile VSS. A/P: 1) Left foot pain secondary to ischemia - arterial doppler with concern for stenosis. CV surgery consulted and pans for arteriogram with run- off. Await further recommendations. 2) HTN- continue home meds. 3) Tobacco abuse- counselled regarding tobacco cessation.
[2020-01-16 07:07] LABS: Hemoglobin 12.3 g/dL (14.0-18.0); Mean Corpuscular HGB CONC 33.1 g/dL (32.0-36.0); Mean Corpuscular Hemoglobin 29.2 pg (27.0-31.0); Mean Corpuscular Volume 88.3 fL (78.0-98.0); Mean Platelet Volume 8.6 fL (7.4-10.4); Platelet Count 168 thou/uL (130-400); RBC Distribution Width 13.8 % (11.5-14.5); Red Blood Cell (RBC) Count 4.19 mill/uL (4.70-6.10); White Blood Cell (WBC) Count 4.6 thou/uL (4.8-10.8)
[2020-01-16 07:23] LABS: Anion Gap 12 mmol/L (10-20); BUN (Urea Nitrogen) 20 mg/dL (8.4-25.7); Calc. Creatinine Clearance 48 mL/min (70-130); Calcium 8.8 mg/dL (7.8-10.44); Carbon Dioxide 22 mmol/L (23-31); Chloride 108 mmol/L (98-107); Estimated GFR-MDRD 58; Glucose 92 mg/dL (83-110); Potassium 4.4 mmol/L (3.5-5.1); Sodium 138 mmol/L (136-145)
--- NOTE | 2020-01-16 07:52 | ULT ---
BILATERAL LOWER EXTREMITY ARTERIAL DOPPLER WITH SPECTRAL ANALYSIS AND COLOR FLOW EVALUATION: Date: 01/15/2020 HISTORY: Left lower extremity pain, left digit gangrene. FINDINGS: Solorzano scale, color flow, Doppler evaluation, and spectral analysis of the left lower extremity arteria l vessels is performed with 2D imaging. Left lower extremity: There is significant calcified atherosclerotic plaque involving the left common femoral artery, as we ll as what appears to be soft atherosclerotic plaque in the left common femoral artery. A monophasic waveform is present with decreased peak systolic velocity at 74.6 cm/sec. There are monophasic wavefo carol which significantly dampen arterial waveforms seen in the proximal and mid superficial femoral ar teries with decreased peak systolic velocity in the left lower extremity superficial femoral artery w ith highest velocity obtained in the distal left SFA of 34.7 cm/sec. There is monophasic waveform wit h spectral broadening involving the left popliteal artery with a decreased peak systolic velocity of 29.3 cm/sec. There is prominent calcified atherosclerotic plaque seen within the left posterior tibia l artery with monophasic waveform and spectral broadening involving the left posterior tibial artery and decreased peak systolic velocity. Monophasic waveform with significantly dampened velocity and wa veform in the left dorsalis pedis artery is present. Monophasic waveform and decreased peak systolic velocity is present in left anterior tibial artery. Right lower extremity: There is an elevated peak systolic velocity in the right common femoral artery of 187.3 cm/sec sugges ting significant stenosis at this level. Atherosclerotic calcifications and plaque are seen throughou t the right lower extremity arterial vessels. There do appear to be triphasic waveforms in the right lower extremity superficial femoral artery proximally and in the mid portion of the artery with monop hasic waveform in the distal right superficial femoral artery, as well as in the popliteal artery and tibial peroneal vessels, with decreased peak systolic velocities in the tibial peroneal vessels and a significant monophasic waveform suggestive of significant atherosclerotic vascular disease in the r ight anterior tibial artery. IMPRESSION: 1. Significant atherosclerotic vascular disease involving the bilateral lower extremity arterial ves sels with what appears to be only minimal flow present within the left superficial femoral artery and significantly dampened waveforms throughout the vessels of the left lower extremity. 2. Significantly elevated peak systolic velocity in the right lower extremity common femoral artery suggesting significant stenosis. There is also atherosclerotic vascular disease seen throughout the r emainder of the right lower extremity arterial vessels. POS: JESSICA
[2020-01-16] MEDS: Hydrochlorothiazide 25 MG TAB PO SCH ×2 (09:01→21:40)
[2020-01-16] MEDS: Amlodipine 10 MG TAB PO SCH (09:02)
[2020-01-16 09:20] LABS: Hemoglobin A1c 5.7 % (4.0-6.0)
[2020-01-16 09:22] LABS: Cardiac Risk 3.2 (Less than 4.5)
[2020-01-16] MEDS ORDERED: Iopamidol 370 76% 50 ML VIAL FS ONE (10:21)
[2020-01-16] MEDS: Lactated Ringer's 1,000 ML IV SCH ×2 (10:31→19:33)
[2020-01-16] MEDS ORDERED: Midazolam HCl 2 mg/2 ml Vial ONE (11:46)
[2020-01-16] MEDS ORDERED: Fentanyl 100 MCG/2 ML VIAL ONE (11:47)
[2020-01-16] MEDS ORDERED: Metoprolol Tartrate 5 MG/5 ML VIAL ONE (12:01)
[2020-01-16] MEDS ORDERED: Heparin 10,000 UNITS/ 10 ML VIAL ONE (12:08)
[2020-01-16] MEDS ORDERED: hydrALAZINE 20 MG/ML VIAL ONE (12:15)
[2020-01-16] MEDS ORDERED: Morphine 2 MG/ML VIAL ONE (12:55)
--- NOTE | 2020-01-16 12:59 | OP ---
DATE OF PROCEDURE: 01/16/2020 PREOPERATIVE DIAGNOSIS: Peripheral vascular disease with left leg rest pain. POSTOPERATIVE DIAGNOSIS: Peripheral vascular disease with left leg rest pain. PROCEDURES PERFORMED: 1. Ultrasound-guided right femoral artery access. 2. Abdominal aortogram. 3. Left common femoral artery angiogram with left leg runoff. 4. ProGlide closure. TOTAL CONTRAST: 20 mL. TOTAL FLUORO TIME: 2.9 minutes. ANESTHESIA: 2 mg Versed/50 mcg fentanyl for sedation. DESCRIPTION OF PROCEDURE: After consent was obtained, the patient was brought to the bottle labeler, placed in supine position on bottle labeler table. Appropriate central line and monitors were placed. Sedation was begun. Groins were prepped and draped in usual sterile fashion. Using ultrasound guidance, the right groin was anesthetized with 1% lidocaine. Using ultrasound guidance, the right groin was accessed with micropuncture needle and common femoral artery access. A micropuncture sheath was placed followed by a Bentson guidewire. Sheath was upsized to a 5-[place] sheath. Contra catheter was passed in the upper abdominal aorta. Aortogram was performed showing no significant aortic or iliac obstructive disease. Contra catheter was guided over the aortic bifurcation down into the common femoral artery. Multiple images were then taken. The common femoral and profunda femoris arteries were widely patent. The superficial femoral artery was acutely occluded approximately 1 cm distal to its takeoff. It reconstituted via collaterals at [place] canal, The popliteal artery was not normal in appearance. There was significant atherosclerosis within the popliteal artery that extended down into the tibioperoneal trunk. Anterior and posterior tibial arteries were chronically occluded. The peroneal artery passed from the tibioperoneal trunk down to the foot. Bentson guidewire was replaced. The 5-[place] sheath was removed and ProGlide was used to close the right groin. The patient tolerated the procedure well, was taken to the recovery area in stable condition. Job ID: [id number]
[2020-01-16 13:00] LABS: SARS-CoV-2 MS2 Positive; SARS-CoV-2 N Gene Negative; SARS-CoV-2 S Gene Negative; SARS-CoV-2 by NAA Not Detected (NotDetected); SARS-CoV-2 orf1ab Negative
[2020-01-16] MEDS ORDERED: hydrALAZINE 20 MG/ML VIAL SLOW IVP PRN ×2 (15:29)
[2020-01-16] MEDS: Atorvastatin Calcium 10 MG TAB PO SCH (21:39)
[2020-01-16] MEDS: Nicotine 14 MG PATCH TD SCH (21:42)
[2020-01-17] MEDS: Sodium Chloride 0.9% 1,000 ML IV SCH ×3 (01:10→20:00)
[2020-01-17] MEDS ORDERED: hydrALAZINE 20 MG/ML VIAL SLOW IVP PRN ×3 (04:56→05:08)
[2020-01-17] MEDS ORDERED: hydrALAZINE 20 MG/ML VIAL SLOW IVP SCH (05:15)
[2020-01-17 06:14] LABS: Anion Gap 14 mmol/L (10-20); BUN (Urea Nitrogen) 18 mg/dL (8.4-25.7); Calc. Creatinine Clearance 47 mL/min (70-130); Carbon Dioxide 23 mmol/L (23-31); Chloride 102 mmol/L (98-107); Estimated GFR-MDRD 57; Glucose 88 mg/dL (83-110); Sodium 135 mmol/L (136-145)
[2020-01-17] MEDS: PROVENTIL INHALER 6.7 G (200 INHALATIONS) INH SCH (07:22)
[2020-01-17] MEDS: Morphine 2 MG/ML VIAL SLOW IVP PRN (08:48)
[2020-01-17] MEDS: Labetalol HCl 100 MG/20 ML VIAL SLOW IVP PRN (08:49)
[2020-01-17] MEDS: Amlodipine 10 MG TAB PO SCH (08:57)
[2020-01-17] MEDS: Hydrochlorothiazide 25 MG TAB PO SCH ×2 (08:58→20:05)
[2020-01-17] MEDS ORDERED: Non-Formulary Item 1 EACH (Albuterol Sulfate [Proair Hfa] 8.5 GM Hfa.Aer.Ad) INH SCH (09:00)
[2020-01-17] MEDS ORDERED: PROVENTIL INHALER 6.7 G (200 INHALATIONS) INH SCH (09:00)
--- NOTE | 2020-01-17 09:34 | PDOC.FM ---
- Subjective Subjective: Patient reports persistent LLE pain and foot pain. Overall otherwise doing well. Had BP in 190 SBP, received IV hydralazine. - Objective Vital Signs & Weight: Vital Signs (12 hours) Temp Pulse Resp BP BP Pulse Ox 01/17/20 08:45 99 F 91 16 175/98 H 96 01/17/20 07:20 98.9 F 93 16 176/98 H 99 01/17/20 05:30 57 L 190/97 H 01/17/20 04:00 98.8 F 62 18 190/97 H 96 01/17/20 03:00 165/85 H 01/17/20 01:21 53 L 191/105 H 01/17/20 00:00 98.3 F 72 18 161/104 H 99 Weight Admit Weight 75.523 kg Weight 75.523 kg I&O: 01/16/20 01/17/20 01/18/20 06:59 06:59 06:59 Intake Total 240 Output Total 500 Balance -260 Result Diagrams: 01/16/20 06:40 01/17/20 05:38 Phys Exam - Physical Examination Constitutional: NAD Respiratory: no wheezing, no rales, no rhonchi Cardiovascular: RRR, no significant murmur, no rub Gastrointestinal: soft, non-tender, no distention Unchanged from yesterday, cool LLE, skin changes on L toes Dx/Plan - Plan Plan: 74 yo M with history of HTN and COPD complaining of painful and cold left toes Ischemic Ulcer vs Peripheral Vascular Disease -cold and painful left LE digits -afebrile, WBC wnl, CRP <0.5 -US arterial LE pending -[place], morphine prn for pain -Wound care consulted, Director Business Travel consulted -Consider CTA of LE - Dr. Hebert to do Fem/tib bypass today - Ancef on board HTN -BP 197/113 in ED -IV labetalol prn - increase HCTZ to 25 mg BID, amlodipine 10 mg - Consider adding 3rd agent COPD -Well controlled -Continue home meds Tobacco abuse - 1/2 PPD for 60 years - Nicotine patch DVT PPx: SCDs Diet: HH, NPO at midnight Code: FULL PCP: Rubio Dispo: Complete workup for PVD, discharge pending evaluation by general surgery Addendum - Attending - Attending Attestation Date/Time: 01/17/20 0559 I personally evaluated the patient and discussed the management with Dr. Perez I agree with the History, Examination, Assessment and Plan documented above with any addition or exceptions noted below - Patient without complaints. Still having some leg pain. Afebrile VSS. A/P: 1) PAD - plan for femoral-tibial bypass today. Appreciate CV surgery assistance. 2) HTN- stable.
[2020-01-17] MEDS ORDERED: CEFAZOLIN 2 GM in Premix Bag 1 BAG IVPB SCH (10:30)
[2020-01-17] MEDS ORDERED: Bupivacaine PF 0.5% 30 ML VIAL ONE (10:32)
[2020-01-17] MEDS ORDERED: Protamine Sulfate 50 MG/5 ML VIAL ONE (10:32)
[2020-01-17] MEDS ORDERED: Heparin 5,000 UNITS/ML VIAL ONE (10:32)
[2020-01-17] MEDS ORDERED: EPINEPHrine 1 MG/ML AMP ONE (10:32)
[2020-01-17] MEDS ORDERED: Fentanyl 100 MCG/2 ML VIAL ONE ×4 (11:10→16:35)
[2020-01-17] MEDS ORDERED: PHENYLEPHRINE-NS 100 MCG/ML 10 ML SYRINGE ONE (11:45)
[2020-01-17] MEDS ORDERED: Labetalol HCl 100 MG/20 ML VIAL ONE ×2 (11:45)
[2020-01-17] MEDS ORDERED: Dexamethasone 20 MG/5 ML VIAL ONE (11:45)
[2020-01-17] MEDS ORDERED: PROPOFOL 200 MG/20 ML VIAL ONE (11:45)
[2020-01-17] MEDS ORDERED: Lidocaine 1% PF 5 ML VIAL ONE (11:45)
[2020-01-17] MEDS ORDERED: EPHEDRINE 25 MG/5 ML SYRINGE ONE (11:45)
[2020-01-17] MEDS ORDERED: Rocuronium Bromide 10 MG/ML (10ML VIAL) ONE (11:45)
[2020-01-17] MEDS ORDERED: Promethazine HCl 25 MG/ML VIAL SLOW IVP PRN ×2 (13:07→15:40)
[2020-01-17] MEDS ORDERED: Ondansetron HCl/PF 4 MG/2 ML Vial IVP PRN ×2 (13:07→15:40)
[2020-01-17] MEDS ORDERED: Promethazine HCl 25 MG/ML VIAL IM PRN ×2 (13:07→15:40)
[2020-01-17] MEDS ORDERED: SUGAMMADEX SODIUM 500 MG/5 ML VIAL ONE (13:42)
[2020-01-17] MEDS ORDERED: Rocuronium Bromide 50 MG/5 ML VIAL ONE (13:51)
[2020-01-17] MEDS ORDERED: Morphine Sulfate 2 MG/ML SYRINGE SLOW IVP PRN (15:40)
[2020-01-17] MEDS ORDERED: hydrALAZINE 20 MG/ML VIAL ONE (15:44)
--- NOTE | 2020-01-17 17:35 | OP ---
DATE OF PROCEDURE: 01/17/2020 PREOPERATIVE DIAGNOSIS: Peripheral vascular disease. POSTOPERATIVE DIAGNOSIS: Peripheral vascular disease. PROCEDURES PERFORMED: Left femoral to above knee popliteal artery bypass utilizing in-situ saphenous vein. Note, the below-knee tibioperoneal trunk and peroneal arteries were explored and I could not find a bypassable lumen. Therefore, we aborted and went to the above-knee popliteal artery. ANESTHESIA: General endotracheal. ESTIMATED BLOOD LOSS: Less than 100. DRAINS: None. SPECIMENS: None. DESCRIPTION OF PROCEDURE: After consent was obtained, the patient was brought to the operating room and placed in supine position on the operating room table. Appropriate central line and monitors were placed, and general endotracheal anesthesia was induced. Left greater saphenous vein was interrogated and appeared to be a viable conduit. The left leg was prepped and draped in usual sterile fashion. The left greater saphenous vein was harvested from the groin to below knee mid calf utilizing an endoscopic technique. A skin incision was then made over the common femoral artery. Common femoral artery was carefully dissected free from surrounding tissues. The saphenous vein was dissected free at the saphenofemoral junction and divided. The skin incision was then made below the knee to expose the tibioperoneal trunk and peroneal artery. Once these were exposed, the saphenous vein was divided distally. The saphenous vein was distended from the proximal end and valves were ligated. Branches were all tied. The patient was systemically heparinized. The graft was tunneled from the groin down to the lower leg. The proximal anastomosis was then created with running 6-0 Prolene suture. On release of the clamp, there was good flow through the graft. There was good hemostasis. The below-knee peroneal and subsequently tibioperoneal trunk were explored and I could not find a viable lumen to bypass to. The above knee popliteal artery was then exposed. Proximal and distal control were obtained and clamped. The saphenous vein was then anastomosed to the popliteal with running 6-0 Prolene suture. On release of clamps, there was good palpable pulse in the distal popliteal artery. It appears there was a great Doppler signal that abated with occluding the graft. A 50 mg of protamine was given. Wounds were irrigated, closed in layers, and Dermabond applied to skin. The patient was awakened and transferred to recovery room in stable condition. Needle, sponge, and instrument counts were all reported as correct at the end of the procedure. Job ID: [id number]
[2020-01-17] MEDS: Atorvastatin Calcium 10 MG TAB PO SCH (20:04)
[2020-01-17] MEDS: HYDROcodone/Acetaminophen 5/325 mg Tablet PO PRN (20:05)
[2020-01-17] MEDS: Nicotine 14 MG PATCH TD SCH (20:05)
[2020-01-18] MEDS: Sodium Chloride 0.9% 1,000 ML IV SCH ×2 (00:58→11:02)
[2020-01-18] MEDS: HYDROcodone/Acetaminophen 5/325 mg Tablet PO PRN ×3 (04:39→13:19)
[2020-01-18 07:06] LABS: #Basophils 0.1 thou/uL (0.0-0.2); #Lymphocytes 1.7 thou/uL (1.20-3.40); #Monocytes 0.9 thou/uL (0.11-0.59); #Neutrophils 5.4 thou/uL (1.40-6.50); %Basophils 0.7 % (0.0-1.0); %Eosinophils 0.6 % (0.0-10.0); %Lymphocytes 21.5 % (21.0-51.0); %Monocytes 10.8 % (0.0-10.0); %Neutrophils 66.4 % (42.0-75.0); Hemoglobin 12.6 g/dL (14.0-18.0); Mean Corpuscular HGB CONC 32.7 g/dL (32.0-36.0); Mean Corpuscular Hemoglobin 29.3 pg (27.0-31.0); Mean Corpuscular Volume 89.5 fL (78.0-98.0); Mean Platelet Volume 8.7 fL (7.4-10.4); Platelet Count 175 thou/uL (130-400); RBC Distribution Width 13.8 % (11.5-14.5); Red Blood Cell (RBC) Count 4.31 mill/uL (4.70-6.10); White Blood Cell (WBC) Count 8.1 thou/uL (4.8-10.8)
[2020-01-18 07:27] LABS: Anion Gap 13 mmol/L (10-20); BUN (Urea Nitrogen) 19 mg/dL (8.4-25.7); Calc. Creatinine Clearance 50 mL/min (70-130); Carbon Dioxide 22 mmol/L (23-31); Chloride 103 mmol/L (98-107); Estimated GFR-MDRD 61; Glucose 95 mg/dL (83-110); Sodium 134 mmol/L (136-145)
[2020-01-18] MEDS: Hydrochlorothiazide 25 MG TAB PO SCH (08:29)
[2020-01-18] MEDS: Amlodipine 10 MG TAB PO SCH (08:33)
[2020-01-18] MEDS: PROVENTIL INHALER 6.7 G (200 INHALATIONS) INH SCH (08:40)
[2020-01-18] MEDS ORDERED: Clopidogrel Bisulfate 75 MG TAB PO SCH (09:00)
--- NOTE | 2020-01-18 10:11 | PDOC.FM ---
- Subjective Subjective: Patient reports mild soreness at incision sites. Foot pain is decreased, overall feels well. - Objective Vital Signs & Weight: Vital Signs (12 hours) Temp Pulse Resp BP Pulse Ox 01/18/20 08:40 59 L 16 100 01/18/20 07:45 98.6 F 62 20 166/98 H 97 01/18/20 04:54 98.4 F 70 16 140/84 100 01/17/20 23:50 98.3 F 66 16 134/83 99 01/17/20 23:00 64 146/87 H 01/17/20 22:30 65 144/79 H Weight Admit Weight 75.523 kg Weight 75.523 kg I&O: 01/17/20 01/18/20 01/19/20 06:59 06:59 06:59 Intake Total 240 2500 Output Total 500 1000 Balance -260 1500 Result Diagrams: 01/18/20 06:27 01/18/20 06:27 Phys Exam - Physical Examination Constitutional: NAD Respiratory: no wheezing, no rales, no rhonchi Cardiovascular: RRR, no significant murmur, no rub Gastrointestinal: soft, non-tender, no distention Post op changes, 3 dressings along L leg, dressing CDI Psychiatric: normal affect, A&O x 3 Dx/Plan - Plan Plan: 74 yo M with history of HTN and COPD complaining of painful and cold left toes Ischemic Ulcer vs Peripheral Vascular Disease -cold and painful left LE digits, s/p fem/tib bypass -afebrile, WBC wnl, CRP <0.5 -[place], morphine prn for pain -Wound care consulted, Bell[employer] Captain consulted - Dr. Hebert performed Fem/tib bypass 01/17 - Note says can DC today if no complications, walk this AM-PT consulted HTN -BP 197/113 in ED -IV labetalol prn - HCTZ 25 mg BID, amlodipine 10 mg - Consider adding 3rd agent COPD -Well controlled -Continue home meds Tobacco abuse - 1/2 PPD for 60 years - Nicotine patch DVT PPx: SCDs Diet: HH Code: FULL PCP: Rubio Dispo: Likely DC today pending patient, PT evaluation Addendum - Attending - Attending Attestation Date/Time: 01/18/20 5992 I personally evaluated the patient and discussed the management with Dr. Perez I agree with the History, Examination, Assessment and Plan documented above with any addition or exceptions noted below - Patient without complaints. Leg/foot pain much improved. Afebrile VSS. A/P: 1) 1) PAD s/p fem-tibial bypass- stable for discharge; follow-up in clinic in 1-2 weeks.
[2020-01-18 16:00] VITALS: BP 157/88; TEMP 99.1
--- NOTE | 2020-01-18 23:12 | DIS ---
DATE OF ADMISSION: 01/15/2020 DATE OF DISCHARGE: 01/18/2020 RESIDENT: Alli Perez MD ADMITTING ATTENDING: Catracho Grewal MD DISCHARGE ATTENDING: Orly Puckett MD CONSULTATION: CV Surgery, Dr. Hebert on 01/15. PROCEDURES: On 01/16, patient underwent left femoral to above knee popliteal artery bypass using in situ saphenous vein. PRIMARY DIAGNOSIS: Peripheral vascular disease. SECONDARY DIAGNOSES: 1. Hypertension. 2. Chronic obstructive pulmonary disease. 3. Tobacco abuse. DISCHARGE MEDICATIONS: 1. Plavix 75 mg p.o. daily. 2. Hydrochlorothiazide 25 mg p.o. b.i.d. 3. [place] 5/325, 10 pills. 4. Albuterol 8.5 g HFA 2 puffs inhaler daily. 5. Amlodipine 10 mg p.o. every other day. 6. Simvastatin 20 mg p.o. at bedtime. 7. Doxycycline 100 mg p.o. q.12 hours x5 days. DISCONTINUED MEDICATIONS: None. HISTORY OF PRESENT ILLNESS/HOSPITAL COURSE: Patient is a 74-year-old man, who initially presented due to foot pain. Patient was seen and evaluated in clinic multiple times over the past month, was prescribed antibiotics for presumed infection. On exam, patient's left lower extremity was cooler when compared to the right, patient had 4th, 5th and great toes on the left foot that were extremely painful with darkness over the tips. Duplex venous ultrasound showed no evidence of DVT. Arterial Doppler bilateral showed only a trickle of blood flow to the left superficial femoral artery with significant atherosclerotic disease in both lower extremities. Dr. Hebert, CV Surgery, was consulted. Performed procedure as above on 01/16. Procedure was tolerated well with no complications. Patient reported in the morning after surgery that he was doing well with decreased foot pain. On exam, the left leg was as one as right leg. Patient had no postop complications while in the hospital. Patient worked with Physical Therapy and walked on day of discharge. Patient was started on Plavix by Dr. Hebert. Patient had an increased blood pressure while in the hospital and hydrochlorothiazide was increased to 25 mg p.o. b.i.d. Patient was sent home on 10 pills of hydrocodone 5/325 for postop pain. DISPOSITION: Stable. DISCHARGE INSTRUCTIONS: Location: Home. Diet: Heart-healthy. Activity: As tolerated. Followup: Patient should follow up with Dr. Hebert within one week and to follow up at the [facility] within two weeks. Job ID: [id number] [id number]
--- NOTE | 2020-01-19 14:24 | EKG ---
Test Reason : Blood Pressure : / mmHG Vent. Rate : 056 BPM Atrial Rate : 056 BPM P-R Int : 178 ms QRS Dur : 072 ms QT Int : 438 ms P-R-T Axes : 070 053 172 degrees QTc Int : 422 ms Sinus bradycardia T wave abnormality, consider lateral ischemia Abnormal ECG Confirmed by JORDAN LOZANO DO ([id number]), editor department MALATHI BYRD ([id number]) on 01/19/2020 2:23:54 PM Referred By: Confirmed By:JORDAN LOZANO DO
== END 2020-01-18 16:55 | disposition home or self-care (01) | DRG 253 ==
LOC: ERS 15:02 → T4-A 17:40
PROVIDERS: ADMIT Family Medicine; ATTEND Family Medicine
PROC: B41D1ZZ Fluoroscopy of Aorta and Bilateral Lower Extremity Arteries using Low Osmolar Contrast (ICD-10-PCS; 2020-01-16)
PROC: 041L09L Bypass Left Femoral Artery to Popliteal Artery with Autologous Venous Tissue, Open Approach (ICD-10-PCS; principal; 2020-01-17)
PROC: 06BQ0ZZ Excision of Left Saphenous Vein, Open Approach (ICD-10-PCS; 2020-01-17)
DX: I70.222 Atherosclerosis of native arteries of extremities with rest pain, left leg (principal); I70.262 Atherosclerosis of native arteries of extremities with gangrene, left leg; I10 Essential (primary) hypertension; I77.1 Stricture of artery; Z20.828 Contact with and (suspected) exposure to other viral communicable diseases; F17.210 Nicotine dependence, cigarettes, uncomplicated; J44.9 Chronic obstructive pulmonary disease, unspecified; Z88.6 Allergy status to analgesic agent; Z88.8 Allergy status to other drugs, medicaments and biological substances; Z79.51 Long term (current) use of inhaled steroids; Z79.899 Other long term (current) drug therapy
CPT/HCPCS: 36246; 36415; 75630; 75710; 76942; 80048; 80053; 80061; 82550; 83036; 85025; 85027; 86140; 87635; 93005; 93923; 93970; 99152; C1760; J0171; J0360; J0690; J1100; J1644; J2250; J2270; J2704; J2720; J3010; Q9967; S0020; U0003

== ENCOUNTER 2021-07-16 13:28 | Outpatient (CLI) | payer MEDICARE, OTHER | END 2021-07-16 13:29 | disposition home or self-care (01) | LOC: ULT 13:28 | PROVIDERS: ATTEND Student in an Organized Health Care Education/Training Program | DX: R05.9 Cough, unspecified (principal); R06.01 Orthopnea; I51.7 Cardiomegaly | CPT/HCPCS: 93306 ==

== ENCOUNTER 2021-09-30 11:22 | Inpatient (IN) | payer OTHER ==
[2021-09-30 12:26] LABS: #Eosinphils 0.3 thou/uL (0.0-0.7); #Lymphocytes 1.8 thou/uL (1.20-3.40); #Monocytes 0.5 thou/uL (0.11-0.59); #Neutrophils 3.3 thou/uL (1.40-6.50); %Basophils 0.4 % (0.0-1.0); %Lymphocytes 29.9 % (21.0-51.0); %Monocytes 7.9 % (0.0-10.0); %Neutrophils 56.7 % (42.0-75.0); Hemoglobin 12.1 g/dL (14.0-18.0); Mean Corpuscular HGB CONC 31.8 g/dL (32.0-36.0); Mean Corpuscular Hemoglobin 28.3 pg (27.0-31.0); Mean Corpuscular Volume 88.9 fL (78.0-98.0); Mean Platelet Volume 8.4 fL (7.4-10.4); Platelet Count 191 thou/uL (130-400); RBC Distribution Width 14.3 % (11.5-14.5); Red Blood Cell (RBC) Count 4.27 mill/uL (4.70-6.10); White Blood Cell (WBC) Count 5.8 thou/uL (4.8-10.8)
[2021-09-30 12:46] LABS: ALT (SGPT) 13 U/L (8-55); AST (SGOT) 18 U/L (5-34); Albumin 3.7 g/dL (3.4-4.8); Alkaline Phosphatase 123 U/L (40-110); Anion Gap 14 mmol/L (10-20); BUN (Urea Nitrogen) 16 mg/dL (8.4-25.7); Bilirubin, Total 0.5 mg/dL (0.2-1.2); Calc. Creatinine Clearance 0 mL/min (70-130); Calcium 9.3 mg/dL (7.8-10.44); Carbon Dioxide 21 mmol/L (23-31); Chloride 107 mmol/L (98-107); Estimated GFR 39; Globulin 2.8 g/dL (2.4-3.5); Glucose 86 mg/dL (83-110); Protein, Total 6.5 g/dL (5.8-8.1); Sodium 138 mmol/L (136-145)
[2021-09-30] MEDS ORDERED: Furosemide 40 MG/4 ML VIAL ONE (14:47)
[2021-09-30] MEDS ORDERED: Nicotine 14 MG PATCH TD SCH (15:00)
[2021-09-30] MEDS ORDERED: hydrALAZINE 20 MG/ML VIAL SLOW IVP PRN (15:20)
[2021-09-30] MEDS ORDERED: hydrALAZINE 20 MG/ML VIAL ONE (15:40)
[2021-09-30] MEDS ORDERED: Hydrochlorothiazide 25 MG TAB PO SCH ×2 (17:00→21:00)
[2021-09-30] MEDS ORDERED: Fluticasone Propionate Nasal Spray 16 gm Bottle NASAL PRN (17:57)
[2021-09-30] MEDS ORDERED: Ipratropium Bromide 2.5 ml Neb NEB PRN (17:58)
[2021-09-30 18:27] VITALS: BMI 22.5
[2021-09-30] MEDS: Lisinopril 10 MG TAB PO SCH ×2 (18:39→18:40)
[2021-09-30] MEDS: Mometasone/Formoterol 60 PUFF AER INH SCH (18:44)
[2021-09-30] MEDS ORDERED: Furosemide 40 MG/4 ML VIAL SLOW IVP SCH (21:00)
[2021-09-30] MEDS: Acetaminophen 325 MG TAB PO PRN (22:34)
[2021-09-30] MEDS: Atorvastatin Calcium 10 MG TAB PO SCH (22:34)
[2021-09-30] MEDS: Gabapentin 300 MG CAP PO SCH (22:34)
[2021-10-01 04:29] LABS: #Eosinphils 0.4 thou/uL (0.0-0.7); #Lymphocytes 2.1 thou/uL (1.20-3.40); #Monocytes 0.9 thou/uL (0.11-0.59); #Neutrophils 3.5 thou/uL (1.40-6.50); %Basophils 0.7 % (0.0-1.0); %Eosinophils 6.1 % (0.0-10.0); %Lymphocytes 30.2 % (21.0-51.0); %Monocytes 13.4 % (0.0-10.0); %Neutrophils 49.6 % (42.0-75.0); Hemoglobin 13.8 g/dL (14.0-18.0); Mean Corpuscular HGB CONC 32.2 g/dL (32.0-36.0); Mean Corpuscular Hemoglobin 28.5 pg (27.0-31.0); Mean Corpuscular Volume 88.5 fL (78.0-98.0); Mean Platelet Volume 8.4 fL (7.4-10.4); Platelet Count 203 thou/uL (130-400); RBC Distribution Width 14.4 % (11.5-14.5); Red Blood Cell (RBC) Count 4.84 mill/uL (4.70-6.10)
[2021-10-01 04:53] LABS: ALT (SGPT) 12 U/L (8-55); AST (SGOT) 17 U/L (5-34); Albumin 4.1 g/dL (3.4-4.8); Alkaline Phosphatase 128 U/L (40-110); Anion Gap 14 mmol/L (10-20); BUN (Urea Nitrogen) 19 mg/dL (8.4-25.7); Bilirubin, Total 0.7 mg/dL (0.2-1.2); Calc. Creatinine Clearance 36 mL/min (70-130); Carbon Dioxide 27 mmol/L (23-31); Chloride 99 mmol/L (98-107); Estimated GFR 36; Globulin 3.3 g/dL (2.4-3.5); Glucose 84 mg/dL (83-110); Potassium 3.3 mmol/L (3.5-5.1); Protein, Total 7.4 g/dL (5.8-8.1); Sodium 137 mmol/L (136-145)
[2021-10-01] MEDS ORDERED: Furosemide 40 MG/4 ML VIAL SLOW IVP SCH ×2 (06:00→15:45)
[2021-10-01] MEDS: Mometasone/Formoterol 60 PUFF AER INH SCH ×2 (06:49→18:57)
[2021-10-01] MEDS ORDERED: Albuterol Sulfate 2.5 mg/3 ml Neb NEB SCH (07:00)
[2021-10-01] MEDS: Gabapentin 300 MG CAP PO SCH ×2 (08:55→20:12)
[2021-10-01] MEDS: Clopidogrel Bisulfate 75 MG TAB PO SCH (08:55)
[2021-10-01] MEDS: Enoxaparin Sodium 30 MG/0.3 ML SYRINGE SC SCH (08:56)
[2021-10-01] MEDS: Tamsulosin HCl 0.4 MG CAP PO SCH (08:56)
[2021-10-01] MEDS: Hydrochlorothiazide 25 MG TAB PO SCH ×2 (08:56→20:11)
[2021-10-01] MEDS ORDERED: Lisinopril 20 MG TAB PO SCH (09:00)
[2021-10-01] MEDS ORDERED: Potassium Chloride 20 MEQ TAB PO SCH (11:00)
[2021-10-01] MEDS ORDERED: Magnesium Oxide 250 MG TAB PO SCH (11:15)
[2021-10-01 12:37] LABS: Magnesium 1.9 mg/dL (1.6-2.6); Phosphorus 3.9 mg/dL (2.3-4.7)
[2021-10-01] MEDS ORDERED: Cilostazol 100 MG TAB PO SCH (17:45)
[2021-10-01] MEDS ORDERED: Clopidogrel Bisulfate 75 MG TAB PO ONE (18:03)
[2021-10-01] MEDS: Acetaminophen 325 MG TAB PO PRN (20:10)
[2021-10-01] MEDS: Atorvastatin Calcium 10 MG TAB PO SCH (20:13)
[2021-10-02 05:11] LABS: ALT (SGPT) 11 U/L (8-55); AST (SGOT) 18 U/L (5-34); Alkaline Phosphatase 125 U/L (40-110); Anion Gap 19 mmol/L (10-20); BUN (Urea Nitrogen) 27 mg/dL (8.4-25.7); Bilirubin, Total 0.6 mg/dL (0.2-1.2); Calc. Creatinine Clearance 30 mL/min (70-130); Calcium 9.7 mg/dL (7.8-10.44); Carbon Dioxide 22 mmol/L (23-31); Chloride 98 mmol/L (98-107); Estimated GFR 31; Globulin 3.2 g/dL (2.4-3.5); Glucose 110 mg/dL (83-110); Magnesium 1.9 mg/dL (1.6-2.6); Potassium 3.5 mmol/L (3.5-5.1); Protein, Total 7.2 g/dL (5.8-8.1); Sodium 135 mmol/L (136-145)
[2021-10-02] MEDS: Mometasone/Formoterol 60 PUFF AER INH SCH (07:34)
[2021-10-02] MEDS ORDERED: Furosemide 40 MG TAB PO SCH (09:00)
[2021-10-02] MEDS ORDERED: Lisinopril 20 MG TAB PO SCH (09:00)
[2021-10-02] MEDS: Gabapentin 300 MG CAP PO SCH (09:41)
[2021-10-02] MEDS: Hydrochlorothiazide 25 MG TAB PO SCH (09:41)
[2021-10-02] MEDS: Clopidogrel Bisulfate 75 MG TAB PO SCH (09:41)
[2021-10-02] MEDS: Enoxaparin Sodium 30 MG/0.3 ML SYRINGE SC SCH (09:41)
[2021-10-02] MEDS: Tamsulosin HCl 0.4 MG CAP PO SCH (09:42)
[2021-10-02] MEDS ORDERED: Cilostazol 100 MG TAB PO SCH (10:15)
[2021-10-02 14:34] VITALS: BP 125/71; TEMP 98.1
[2021-10-03] MEDS ORDERED: Cilostazol 100 MG TAB PO SCH (09:00)
== END 2021-10-02 15:42 | disposition home or self-care (01) | DRG 291 ==
LOC: ERS 11:22 → 2NO 14:24 → INTOOBSV 14:24 → OBSVTOIN 10-01 18:02
PROVIDERS: ADMIT Family Medicine; ATTEND Student in an Organized Health Care Education/Training Program
DX: I13.0 Hypertensive heart and chronic kidney disease with heart failure and stage 1 through stage 4 chronic kidney disease, or unspecified chronic kidney disease (principal); I50.33 Acute on chronic diastolic (congestive) heart failure; N17.9 Acute kidney failure, unspecified; I16.0 Hypertensive urgency; N40.0 Benign prostatic hyperplasia without lower urinary tract symptoms; I73.9 Peripheral vascular disease, unspecified; E87.6 Hypokalemia; M16.12 Unilateral primary osteoarthritis, left hip; G89.29 Other chronic pain; M54.9 Dorsalgia, unspecified; E78.5 Hyperlipidemia, unspecified; K21.9 Gastro-esophageal reflux disease without esophagitis; F17.210 Nicotine dependence, cigarettes, uncomplicated; J44.9 Chronic obstructive pulmonary disease, unspecified; B18.2 Chronic viral hepatitis C; F10.10 Alcohol abuse, uncomplicated; Z88.6 Allergy status to analgesic agent; Z88.8 Allergy status to other drugs, medicaments and biological substances; Z79.899 Other long term (current) drug therapy; Z79.02 Long term (current) use of antithrombotics/antiplatelets; Z95.828 Presence of other vascular implants and grafts; Z71.6 Tobacco abuse counseling; Z71.41 Alcohol abuse counseling and surveillance of alcoholic
CPT/HCPCS: 36415; 71045; 80053; 83735; 83880; 84100; 84484; 84550; 85025; 93005; 93923; 94640; 96376; G0378; J0360; J1650; J1940; U0003; U0005

== ENCOUNTER 2021-10-02 16:06 | Inpatient (IN) | payer OTHER ==
[2021-10-02 16:22] LABS: #Basophils 0.2 thou/uL (0.0-0.2); #Eosinphils 0.3 thou/uL (0.0-0.7); #Lymphocytes 3.4 thou/uL (1.20-3.40); #Monocytes 0.7 thou/uL (0.11-0.59); #Neutrophils 3.3 thou/uL (1.40-6.50); %Basophils 2.9 % (0.0-1.0); %Eosinophils 4.1 % (0.0-10.0); %Lymphocytes 42.2 % (21.0-51.0); %Monocytes 9.3 % (0.0-10.0); %Neutrophils 41.6 % (42.0-75.0); Hemoglobin 13.8 g/dL (14.0-18.0); Mean Corpuscular HGB CONC 30.7 g/dL (32.0-36.0); Mean Corpuscular Hemoglobin 27.7 pg (27.0-31.0); Mean Corpuscular Volume 90.3 fL (78.0-98.0); Mean Platelet Volume 8.8 fL (7.4-10.4); Platelet Count 256 thou/uL (130-400); RBC Distribution Width 14.3 % (11.5-14.5); Red Blood Cell (RBC) Count 4.99 mill/uL (4.70-6.10); White Blood Cell (WBC) Count 7.9 thou/uL (4.8-10.8)
[2021-10-02 16:49] LABS: ALT (SGPT) 11 U/L (8-55); AST (SGOT) 17 U/L (5-34); Alkaline Phosphatase 119 U/L (40-110); Anion Gap 20 mmol/L (10-20); BUN (Urea Nitrogen) 32 mg/dL (8.4-25.7); Bilirubin, Total 0.6 mg/dL (0.2-1.2); Calc. Creatinine Clearance 0 mL/min (70-130); Calcium 9.6 mg/dL (7.8-10.44); Carbon Dioxide 23 mmol/L (23-31); Chloride 98 mmol/L (98-107); Estimated GFR 22; Globulin 3.4 g/dL (2.4-3.5); Glucose 147 mg/dL (83-110); Potassium 3.1 mmol/L (3.5-5.1); Protein, Total 7.4 g/dL (5.8-8.1); Sodium 138 mmol/L (136-145)
[2021-10-02 19:47] VITALS: BMI 21.9
[2021-10-02] MEDS: Atorvastatin Calcium 10 MG TAB PO SCH (21:29)
[2021-10-02] MEDS: Hydrochlorothiazide 25 MG TAB PO SCH (21:30)
[2021-10-02] MEDS ORDERED: Potassium Chloride 20 MEQ TAB PO SCH (22:00)
[2021-10-03 05:29] LABS: Anion Gap 16 mmol/L (10-20); BUN (Urea Nitrogen) 33 mg/dL (8.4-25.7); Calc. Creatinine Clearance 33 mL/min (70-130); Calcium 9.3 mg/dL (7.8-10.44); Carbon Dioxide 22 mmol/L (23-31); Chloride 102 mmol/L (98-107); Estimated GFR 33; Glucose 93 mg/dL (83-110); Potassium 4.5 mmol/L (3.5-5.1); Sodium 135 mmol/L (136-145)
[2021-10-03] MEDS: Albuterol Sulfate 2.5 mg/0.5 ml Neb NEB SCH (07:20)
[2021-10-03] MEDS ORDERED: Cilostazol 100 MG TAB PO SCH ×2 (09:00→14:15)
[2021-10-03] MEDS: Lisinopril 20 MG TAB PO SCH (09:11)
[2021-10-03] MEDS: Clopidogrel Bisulfate 75 MG TAB PO SCH (09:11)
[2021-10-03] MEDS: Enoxaparin Sodium 30 MG/0.3 ML SYRINGE SC SCH (09:12)
[2021-10-03] MEDS: Amlodipine 10 MG TAB PO SCH (09:12)
[2021-10-03] MEDS: Gabapentin 300 MG CAP PO PRN (09:12)
[2021-10-03] MEDS: Hydrochlorothiazide 25 MG TAB PO SCH ×2 (09:12→19:49)
[2021-10-03 15:27] LABS: Anion Gap 16 mmol/L (10-20); BUN (Urea Nitrogen) 29 mg/dL (8.4-25.7); Calc. Creatinine Clearance 36 mL/min (70-130); Calcium 9.9 mg/dL (7.8-10.44); Carbon Dioxide 22 mmol/L (23-31); Chloride 101 mmol/L (98-107); Estimated GFR 37; Glucose 101 mg/dL (83-110); Potassium 4.2 mmol/L (3.5-5.1); Sodium 135 mmol/L (136-145)
[2021-10-03] MEDS: Atorvastatin Calcium 10 MG TAB PO SCH (19:49)
[2021-10-04 05:34] LABS: Anion Gap 14 mmol/L (10-20); BUN (Urea Nitrogen) 28 mg/dL (8.4-25.7); Calc. Creatinine Clearance 37 mL/min (70-130); Calcium 9.4 mg/dL (7.8-10.44); Carbon Dioxide 22 mmol/L (23-31); Chloride 102 mmol/L (98-107); Estimated GFR 39; Glucose 95 mg/dL (83-110); Potassium 4.4 mmol/L (3.5-5.1); Sodium 134 mmol/L (136-145)
[2021-10-04 07:55] LABS: #Eosinphils 0.4 thou/uL (0.0-0.7); #Lymphocytes 1.8 thou/uL (1.20-3.40); #Monocytes 0.7 thou/uL (0.11-0.59); #Neutrophils 4.5 thou/uL (1.40-6.50); %Basophils 0.6 % (0.0-1.0); %Eosinophils 5.6 % (0.0-10.0); %Lymphocytes 24.2 % (21.0-51.0); %Monocytes 9.7 % (0.0-10.0); %Neutrophils 59.9 % (42.0-75.0); Hemoglobin 13.5 g/dL (14.0-18.0); Mean Corpuscular HGB CONC 30.8 g/dL (32.0-36.0); Mean Corpuscular Hemoglobin 27.9 pg (27.0-31.0); Mean Corpuscular Volume 90.5 fL (78.0-98.0); Mean Platelet Volume 8.6 fL (7.4-10.4); Platelet Count 204 thou/uL (130-400); RBC Distribution Width 14.2 % (11.5-14.5); Red Blood Cell (RBC) Count 4.85 mill/uL (4.70-6.10); White Blood Cell (WBC) Count 7.5 thou/uL (4.8-10.8)
[2021-10-04 08:03] LABS: ALT (SGPT) 16 U/L (8-55); AST (SGOT) 23 U/L (5-34); Albumin 3.9 g/dL (3.4-4.8); Alkaline Phosphatase 110 U/L (40-110); Anion Gap 15 mmol/L (10-20); BUN (Urea Nitrogen) 27 mg/dL (8.4-25.7); Bilirubin, Total 0.5 mg/dL (0.2-1.2); Calc. Creatinine Clearance 36 mL/min (70-130); Calcium 9.6 mg/dL (7.8-10.44); Carbon Dioxide 20 mmol/L (23-31); Chloride 103 mmol/L (98-107); Estimated GFR 37; Globulin 3.5 g/dL (2.4-3.5); Glucose 97 mg/dL (83-110); Potassium 4.7 mmol/L (3.5-5.1); Protein, Total 7.4 g/dL (5.8-8.1); Sodium 133 mmol/L (136-145)
[2021-10-04] MEDS ORDERED: Cilostazol 100 MG TAB PO SCH (09:00)
[2021-10-04] MEDS: Amlodipine 10 MG TAB PO SCH (09:09)
[2021-10-04] MEDS: Enoxaparin Sodium 30 MG/0.3 ML SYRINGE SC SCH (09:10)
[2021-10-04] MEDS: Lisinopril 20 MG TAB PO SCH (09:10)
[2021-10-04] MEDS: Hydrochlorothiazide 25 MG TAB PO SCH (09:10)
[2021-10-04] MEDS: Clopidogrel Bisulfate 75 MG TAB PO SCH (09:10)
[2021-10-04] MEDS: Albuterol Sulfate 2.5 mg/0.5 ml Neb NEB SCH (10:52)
[2021-10-04] MEDS ORDERED: Lactated Ringer's 500 ML IV SCH (13:30)
[2021-10-04] MEDS: Atorvastatin Calcium 10 MG TAB PO SCH (21:14)
[2021-10-04] MEDS: Gabapentin 300 MG CAP PO PRN (21:15)
[2021-10-05 05:15] LABS: Anion Gap 15 mmol/L (10-20); BUN (Urea Nitrogen) 27 mg/dL (8.4-25.7); Calc. Creatinine Clearance 41 mL/min (70-130); Calcium 9.4 mg/dL (7.8-10.44); Carbon Dioxide 19 mmol/L (23-31); Chloride 102 mmol/L (98-107); Estimated GFR 43; Glucose 95 mg/dL (83-110); Potassium 4.7 mmol/L (3.5-5.1); Sodium 131 mmol/L (136-145)
[2021-10-05] MEDS: Albuterol Sulfate 2.5 mg/0.5 ml Neb NEB SCH (07:38)
[2021-10-05] MEDS: Lisinopril 20 MG TAB PO SCH (09:46)
[2021-10-05] MEDS: Amlodipine 10 MG TAB PO SCH (09:46)
[2021-10-05] MEDS: Clopidogrel Bisulfate 75 MG TAB PO SCH (09:46)
[2021-10-05] MEDS: Enoxaparin Sodium 30 MG/0.3 ML SYRINGE SC SCH (09:49)
[2021-10-05] MEDS: Atorvastatin Calcium 10 MG TAB PO SCH (20:42)
[2021-10-06 05:13] LABS: Anion Gap 14 mmol/L (10-20); BUN (Urea Nitrogen) 31 mg/dL (8.4-25.7); Calc. Creatinine Clearance 45 mL/min (70-130); Calcium 9.6 mg/dL (7.8-10.44); Carbon Dioxide 22 mmol/L (23-31); Chloride 102 mmol/L (98-107); Estimated GFR 47; Glucose 97 mg/dL (83-110); Potassium 4.6 mmol/L (3.5-5.1); Sodium 133 mmol/L (136-145)
[2021-10-06] MEDS: Albuterol Sulfate 2.5 mg/0.5 ml Neb NEB SCH (07:34)
[2021-10-06] MEDS ORDERED: Amlodipine 5 MG TAB PO SCH (09:00)
[2021-10-06] MEDS ORDERED: Lisinopril 10 MG TAB PO SCH (09:00)
[2021-10-06] MEDS: Clopidogrel Bisulfate 75 MG TAB PO SCH (09:01)
[2021-10-06] MEDS: Enoxaparin Sodium 30 MG/0.3 ML SYRINGE SC SCH (09:01)
[2021-10-06 16:20] VITALS: BP 139/89; TEMP 98
[2021-10-07] MEDS ORDERED: Enoxaparin Sodium 40 MG/0.4 ML SYRINGE SC SCH ×2 (09:00)
== END 2021-10-06 19:25 | disposition home or self-care (01) | DRG 312 ==
LOC: ERS 16:06 → 2SW 17:40 → OBSVTOIN 10-04 12:40
PROVIDERS: ADMIT Family Medicine; ATTEND Family Medicine
DX: I95.2 Hypotension due to drugs (principal); N17.9 Acute kidney failure, unspecified; I47.2 Ventricular tachycardia; I50.32 Chronic diastolic (congestive) heart failure; I13.0 Hypertensive heart and chronic kidney disease with heart failure and stage 1 through stage 4 chronic kidney disease, or unspecified chronic kidney disease; Z20.822 Contact with and (suspected) exposure to COVID-19; E87.6 Hypokalemia; I73.9 Peripheral vascular disease, unspecified; N40.0 Benign prostatic hyperplasia without lower urinary tract symptoms; E78.5 Hyperlipidemia, unspecified; J44.9 Chronic obstructive pulmonary disease, unspecified; K21.9 Gastro-esophageal reflux disease without esophagitis; B18.2 Chronic viral hepatitis C; F17.210 Nicotine dependence, cigarettes, uncomplicated; F10.10 Alcohol abuse, uncomplicated; N18.30 Chronic kidney disease, stage 3 unspecified; T46.4X5A Adverse effect of angiotensin-converting-enzyme inhibitors, initial encounter
CPT/HCPCS: 36415; 70450; 71045; 72125; 80048; 85025; 93005; 94640; 96360; 96372; G0378; J1650; J7120; J7611

== ENCOUNTER 2022-07-06 11:01 | Inpatient (IN) | payer OTHER ==
[2022-07-06 12:02] LABS: #Basophils 0.1 thou/uL (0.0-0.2); #Eosinphils 0.8 thou/uL (0.0-0.7); #Lymphocytes 1.7 thou/uL (1.20-3.40); #Monocytes 0.5 thou/uL (0.11-0.59); #Neutrophils 3.5 thou/uL (1.40-6.50); %Basophils 1.1 % (0.0-1.0); %Eosinophils 11.9 % (0.0-10.0); %Monocytes 8.1 % (0.0-10.0); %Neutrophils 52.9 % (42.0-75.0); Hemoglobin 13.3 g/dL (14.0-18.0); Mean Corpuscular HGB CONC 32.8 g/dL (32.0-36.0); Mean Corpuscular Hemoglobin 28.5 pg (27.0-31.0); Mean Corpuscular Volume 86.8 fl (78.0-98.0); Mean Platelet Volume 8.3 fL (7.4-10.4); Platelet Count 206 10x3/uL (130-400); RBC Distribution Width 14.7 % (11.5-14.5); Red Blood Cell (RBC) Count 4.68 mill/uL (4.70-6.10); White Blood Cell (WBC) Count 6.7 10x3/uL (4.8-10.8)
[2022-07-06 12:32] LABS: ALT (SGPT) 12 U/L (8-55); AST (SGOT) 19 U/L (5-34); Albumin 4.2 g/dL (3.4-4.8); Alkaline Phosphatase 131 U/L (40-110); Anion Gap 13 mmol/L (10-20); BUN (Urea Nitrogen) 22 mg/dL (8.4-25.7); Bilirubin, Total 0.4 mg/dL (0.2-1.2); Calc. Creatinine Clearance 0 mL/min (70-130); Calcium 9.7 mg/dL (7.8-10.44); Carbon Dioxide 22 mmol/L (23-31); Chloride 107 mmol/L (98-107); Estimated GFR 39; Globulin 3.4 g/dL (2.4-3.5); Glucose 77 mg/dL (83-110); Potassium 4.3 mmol/L (3.5-5.1); Protein, Total 7.6 g/dL (5.8-8.1); Sodium 138 mmol/L (136-145)
[2022-07-06 12:51] LABS: CKMB 7.4 ng/mL (0-6.6)
[2022-07-06] MEDS ORDERED: methylPREDNISolone Sod Succ/PF 125 MG/2 ML VIAL ONE (13:50)
[2022-07-06] MEDS ORDERED: Ipratropium/Albuterol 3 ML NEB ONE (14:16)
[2022-07-06] MEDS ORDERED: hydrALAZINE 20 MG/ML VIAL ONE (16:31)
[2022-07-06] MEDS ORDERED: Acetaminophen 325 MG TAB PO PRN (18:24)
[2022-07-06 18:38] VITALS: BMI 22.3
[2022-07-06 19:07] LABS: Hemoglobin A1c 5.5 % (4.0-6.0)
[2022-07-06 19:29] LABS: Troponin I 0.042 ng/mL (< 0.028)
[2022-07-06] MEDS: Ipratropium Bromide 2.5 ml Neb NEB SCH (21:44)
[2022-07-06] MEDS ORDERED: Cyclobenzaprine 10 MG TAB PO SCH (23:00)
[2022-07-07] MEDS: Ipratropium Bromide 2.5 ml Neb NEB SCH ×6 (02:05→23:26)
[2022-07-07 04:57] LABS: #Lymphocytes 1.1 thou/uL (1.20-3.40); #Monocytes 0.3 thou/uL (0.11-0.59); #Neutrophils 7.5 thou/uL (1.40-6.50); %Basophils 0.1 % (0.0-1.0); %Eosinophils 0.2 % (0.0-10.0); %Lymphocytes 12.2 % (21.0-51.0); %Neutrophils 84.4 % (42.0-75.0); Hemoglobin 13.5 g/dL (14.0-18.0); Mean Corpuscular HGB CONC 33.2 g/dL (32.0-36.0); Mean Corpuscular Hemoglobin 28.8 pg (27.0-31.0); Mean Corpuscular Volume 86.7 fl (78.0-98.0); Mean Platelet Volume 9.3 fL (7.4-10.4); Platelet Count 220 10x3/uL (130-400); RBC Distribution Width 14.7 % (11.5-14.5); Red Blood Cell (RBC) Count 4.69 mill/uL (4.70-6.10); White Blood Cell (WBC) Count 8.8 10x3/uL (4.8-10.8)
[2022-07-07 05:16] LABS: Anion Gap 17 mmol/L (10-20); BUN (Urea Nitrogen) 36 mg/dL (8.4-25.7); Calc. Creatinine Clearance 36 mL/min (70-130); Calcium 10.3 mg/dL (7.8-10.44); Carbon Dioxide 19 mmol/L (23-31); Cardiac Risk 2.7 (Less than 4.5); Chloride 102 mmol/L (98-107); Cholesterol 180 mg/dl (< 200 Desired); Estimated GFR 36; Glucose 125 mg/dL (83-110); HDL Cholesterol 66 mg/dL (>60 Neg Risk); LDL Cholesterol, Calculated 106 mg/dL; Potassium 4.9 mmol/L (3.5-5.1); Sodium 133 mmol/L (136-145); Triglycerides 42 mg/dL (Less than 150)
[2022-07-07] MEDS ORDERED: Albuterol 200 PUFF (6.7GM INHALER) INH SCH (07:00)
[2022-07-07] MEDS ORDERED: Lisinopril 20 MG TAB PO SCH (09:00)
[2022-07-07] MEDS: predniSONE 20 MG TAB PO SCH (09:25)
[2022-07-07] MEDS: NIFEdipine XL 60 MG TAB PO SCH (09:25)
[2022-07-07] MEDS: Clopidogrel Bisulfate 75 MG TAB PO SCH (09:26)
[2022-07-07] MEDS ORDERED: Atorvastatin Calcium 10 MG TAB PO SCH (21:00)
[2022-07-08] MEDS: Ipratropium Bromide 2.5 ml Neb NEB SCH ×2 (02:18→07:24)
[2022-07-08 05:05] LABS: #Lymphocytes 1.7 thou/uL (1.20-3.40); #Monocytes 0.8 thou/uL (0.11-0.59); #Neutrophils 6.9 thou/uL (1.40-6.50); %Basophils 0.2 % (0.0-1.0); %Eosinophils 0.3 % (0.0-10.0); %Lymphocytes 17.6 % (21.0-51.0); %Monocytes 8.4 % (0.0-10.0); %Neutrophils 73.4 % (42.0-75.0); Hemoglobin 13.4 g/dL (14.0-18.0); Mean Corpuscular HGB CONC 32.7 g/dL (32.0-36.0); Mean Corpuscular Hemoglobin 28.4 pg (27.0-31.0); Mean Corpuscular Volume 86.7 fl (78.0-98.0); Mean Platelet Volume 8.9 fL (7.4-10.4); Platelet Count 214 10x3/uL (130-400); RBC Distribution Width 14.7 % (11.5-14.5); Red Blood Cell (RBC) Count 4.73 mill/uL (4.70-6.10); White Blood Cell (WBC) Count 9.4 10x3/uL (4.8-10.8)
[2022-07-08 05:31] LABS: Anion Gap 14 mmol/L (10-20); BUN (Urea Nitrogen) 40 mg/dL (8.4-25.7); Calc. Creatinine Clearance 37 mL/min (70-130); Calcium 9.5 mg/dL (7.8-10.44); Carbon Dioxide 20 mmol/L (23-31); Chloride 105 mmol/L (98-107); Estimated GFR 38; Glucose 85 mg/dL (83-110); Potassium 4.5 mmol/L (3.5-5.1); Sodium 134 mmol/L (136-145)
[2022-07-08] MEDS ORDERED: Lisinopril 20 MG TAB PO SCH (09:00)
[2022-07-08] MEDS: NIFEdipine XL 60 MG TAB PO SCH (09:16)
[2022-07-08] MEDS: predniSONE 20 MG TAB PO SCH (09:16)
[2022-07-08] MEDS: Clopidogrel Bisulfate 75 MG TAB PO SCH (09:16)
[2022-07-08] MEDS ORDERED: Ipratropium/Albuterol 3 ML NEB NEB SCH (10:30)
[2022-07-08 11:50] VITALS: BP 147/76; TEMP 97.8
== END 2022-07-08 13:01 | disposition home or self-care (01) | DRG 191 ==
LOC: ERS 11:01 → 2NO 18:18
PROVIDERS: ADMIT Student in an Organized Health Care Education/Training Program; ATTEND Emergency Medicine
DX: J44.1 Chronic obstructive pulmonary disease with (acute) exacerbation (principal); I24.8 Other forms of acute ischemic heart disease; I16.0 Hypertensive urgency; E78.5 Hyperlipidemia, unspecified; I73.9 Peripheral vascular disease, unspecified; F17.210 Nicotine dependence, cigarettes, uncomplicated; N18.9 Chronic kidney disease, unspecified; I12.9 Hypertensive chronic kidney disease with stage 1 through stage 4 chronic kidney disease, or unspecified chronic kidney disease; R25.2 Cramp and spasm; R77.8 Other specified abnormalities of plasma proteins; Z91.148 Patient's other noncompliance with medication regimen for other reason; Z88.8 Allergy status to other drugs, medicaments and biological substances; Z79.899 Other long term (current) drug therapy; Z79.02 Long term (current) use of antithrombotics/antiplatelets; Z95.828 Presence of other vascular implants and grafts; Z98.890 Other specified postprocedural states; Z82.49 Family history of ischemic heart disease and other diseases of the circulatory system
CPT/HCPCS: 36415; 71046; 80048; 80053; 80061; 82553; 83036; 83880; 84145; 84443; 84484; 85025; 93005; 94640; 96374; 96375; J0360; J1650; J2930; J7512; J7611; J7620

== ENCOUNTER 2022-09-17 17:57 | Emergency (ER) | payer OTHER ==
[2022-09-17] MEDS ORDERED: Magnesium 2 GM/50 ML BAG (IN WATER) ONE (18:54)
[2022-09-17] MEDS ORDERED: methylPREDNISolone Sod Succ/PF 125 MG/2 ML VIAL ONE (18:54)
[2022-09-17 19:17] LABS: #Basophils 0.1 thou/uL (0.0-0.2); #Eosinphils 0.9 thou/uL (0.0-0.7); #Monocytes 0.5 thou/uL (0.11-0.59); #Neutrophils 2.3 thou/uL (1.40-6.50); %Basophils 1.4 % (0.0-1.0); %Eosinophils 15.4 % (0.0-10.0); %Lymphocytes 33.3 % (21.0-51.0); %Monocytes 8.9 % (0.0-10.0); %Neutrophils 40.8 % (42.0-75.0); Hemoglobin 12.8 g/dL (14.0-18.0); Mean Corpuscular HGB CONC 32.2 g/dL (32.0-36.0); Mean Corpuscular Hemoglobin 27.3 pg (27.0-31.0); Mean Corpuscular Volume 84.6 fl (78.0-98.0); Mean Platelet Volume 10.8 fL (7.4-10.4); Platelet Count 207 10x3/uL (130-400); RBC Distribution Width 15.2 % (11.5-14.5); Red Blood Cell (RBC) Count 4.69 mill/uL (4.70-6.10); White Blood Cell (WBC) Count 5.6 10x3/uL (4.8-10.8)
[2022-09-17 19:44] LABS: ALT (SGPT) 11 U/L (8-55); AST (SGOT) 19 U/L (5-34); Albumin 4.2 g/dL (3.4-4.8); Alkaline Phosphatase 135 U/L (40-110); Anion Gap 15 mmol/L (10-20); BUN (Urea Nitrogen) 25 mg/dL (8.4-25.7); Bilirubin, Total 0.4 mg/dL (0.2-1.2); Calc. Creatinine Clearance 0 mL/min (70-130); Calcium 9.7 mg/dL (7.8-10.44); Carbon Dioxide 23 mmol/L (23-31); Chloride 107 mmol/L (98-107); Estimated GFR 42; Globulin 3.1 g/dL (2.4-3.5); Glucose 96 mg/dL (83-110); Potassium 3.9 mmol/L (3.5-5.1); Protein, Total 7.3 g/dL (5.8-8.1); Sodium 141 mmol/L (136-145)
[2022-09-17 20:02] LABS: CKMB 8.7 ng/mL (0-6.6)
== END 2022-09-17 21:26 | disposition home or self-care (01) ==
LOC: ERS 17:57
DX: J44.1 Chronic obstructive pulmonary disease with (acute) exacerbation (principal); I10 Essential (primary) hypertension; E78.00 Pure hypercholesterolemia, unspecified; Z79.899 Other long term (current) drug therapy; Z87.891 Personal history of nicotine dependence
CPT/HCPCS: 71045; 80053; 82553; 84484; 85025; 93005; 94640; 94760; 96365; 96375; J2930; J3475